=== PATIENT | female | born 1975 | race Caucasian/White ===

== ENCOUNTER 2017-05-14 04:46 | Inpatient (IN) | payer OTHER ==
[~2017-05-14] VITALS: Ht 170.2 cm; Wt 99.0 kg
[~2017-05-14 04:46] MED LIST: DILAUDID2 M1 PO; DOXYCYCLINE HY100 M2 PO; FLEXERIL10 MG PO; NAPROXEN250 M1 PO; PREDNISONE 10MG10 M1 PO; PRILOSEC 20MG C20 MG PO; VICODIN5-300 PO
--- NOTE | 2017-05-14 04:56 | NUR ---
42yo FEMALE TO TRIAGE FROM HOME W/CO L FLANK PAIN THAT RADIATES TO FRONT. STATES IT AWOKE HER THIS AM.
--- NOTE | 2017-05-14 05:16 | NUR ---
EVAL BY DR GARCIA IN 3
--- NOTE | 2017-05-14 05:51 | ED GI/GU/ABDOMINAL COMPLAINT ---
History of Present Illness General Chief Complaint: Abdominal Pain/Flank Pain Stated Complaint: LOWER BACK PAIN/ ABD PAIN X 2 HOURS Source: patient, family, old records, Epic Exam Limitations: no limitations Vital Signs & Intake/Output Vital Signs & Intake/Output Vital Signs Date Time Temp Pulse Resp B/P B/P Pulse O2 O2 Flow FiO2 Mean Ox Delivery Rate 05/14 913 98.7 103 18 131/83 92 Room Air 05/14 0712 98.1 82 18 136/63 96 Room Air 05/14 0517 97 Room Air 05/14 0457 97.4 74 16 114/57 97 Room Air Room Air Allergies Coded Allergies: iodine (Mild, RASH 08/11/16) Reconcile Medications CYCLOBENZAPRINE HCL (Flexeril) 10 MG TAB 1 TAB PO Q8H PRN muscle relaxant Avoid operating motor vehicle or heavy machinery CYCLOBENZAPRINE HCL (Flexeril) 10 MG TAB 1 TAB PO Q8H PRN spasm/pain Avoid operating motor vehicle or heavy machinery Doxycycline Hyclate 100 MG CAPSULE 1 CAP PO BID INFECTION HYDROCODONE/ACETAMINOPHEN (Hydrocodon-Acetaminophen 5-325) 1 TAB TAB 1 TAB PO Q6H PRN pain Hydromorphone HCl (Dilaudid) 2 MG TABLET 2 MG PO Q4P PRN PAIN SCALE 7-10 ( SEVERE) Naproxen 250 MG TABLET 250 MG PO Q6-PRN PRN PAIN SCALE 4-6 (MODERATE) Omeprazole (Prilosec) 20 MG CAPSULE.DR 1 TAB PO PRN GERD (Reported) Prednisone 10 MG TAB 0 PO DAILY sciatica DAY 1: 6 TABS PO QD DAY 2: 5 TABS PO QD DAY 3: 4 TABS PO QD DAY 4: 3 TABS PO QD DAY 5: 2 TABS PO QD DAY 6: 1 TAB PO QD Prednisone 10 MG TAB 0 PO DAILY sciatica DAY 1: 6 TABS PO QD DAY 2: 5 TABS PO QD DAY 3: 4 TABS PO QD DAY 4: 3 TABS PO QD DAY 5: 2 TABS PO QD DAY 6: 1 TAB PO QD Triage Note: 42yo FEMALE TO TRIAGE FROM HOME W/CO L FLANK PAIN THAT RADIATES TO FRONT. STATES IT AWOKE HER THIS AM. Triage Nurses Notes Reviewed? yes LMP (ages 10-50): hysterectomy ? n Is pt currently ? No Onset: Just prior to arrival Duration: hour(s):, constant, continues in ED, getting worse Timing: recent history Quality/Severity: sharpness, severe Location: left flank Radiation: periumbilical Activities at Onset: none Prior Abdominal Problems: similar symptoms Past Sexual History: Unobtainable at this time Modifying Factors: Worsens With: movement, palpation. Associated Symptoms: abdominal pain, loss of appetite, lower back pain, nausea/ vomiting HPI: 3 hours prior to admission patient complains of left flank pain severe sharp radiating to periumbilical area associated with nausea worse with movement palpation. She denies fever chills vomiting diarrhea chest pain cough shortness of breath headache dysuria rash bleeding. (LIBRADO GARCIA MD) Past History Travel History Traveled to [place] past 21 day No Medical History Any Pertinent Medical History? see below for history Neurological: NONE EENT: NONE Cardiovascular: NONE Respiratory: NONE Gastrointestinal: GERD Hepatic: NONE Renal: NONE Musculoskeletal: NONE Psychiatric: NONE Endocrine: NONE Cancer(s): uterine sarcoma Surgical History Surgical History: hysterectomy (TAHBSO), GASTRIC BYPASS, L ureterolysis Psychosocial History What is your primary language Kazakh Tobacco Use: Quit >30 days ago Family History Hx Contributory? No (LIBRADO GARCIA MD) Review of Systems Review of Systems Constitutional: Reports: no symptoms. EENTM: Reports: no symptoms. Respiratory: Reports: no symptoms. Cardiovascular: Reports: no symptoms. GI: Reports: see HPI, abdominal pain, nausea. Genitourinary: Reports: no symptoms. Musculoskeletal: Reports: no symptoms. Skin: Reports: no symptoms. Neurological/Psychological: Reports: no symptoms. Hematologic/Endocrine: Reports: no symptoms. Immunologic/Allergic: Reports: no symptoms. All Other Systems: Reviewed and Negative (LIBRADO GARCIA MD) Physical Exam Physical Exam General Appearance: well developed/nourished, alert, awake, anxious, severe distress, obese Head: atraumatic, normal appearance Eyes: Bilateral: normal appearance, PERRL, EOMI, normal inspection. Ears, Nose, Throat, Mouth: hearing grossly normal, moist mucous membrane Neck: normal inspection, supple, full range of motion, normal alignment Respiratory: normal breath sounds, chest non-tender, no respiratory distress, quiet respiration, lungs clear Cardiovascular: regular rate/rhythm, normal peripheral pulses, norml femoral pulses equa Peripheral Pulses: 4+ carotid (R), 4+ carotid (L) Gastrointestinal: normal bowel sounds, soft, tenderness Back: normal inspection, normal range of motion, CVA tenderness (L) Extremities: normal range of motion, no ligament instability Neurologic/Psych: no motor/sensory deficits, awake, alert, oriented x 3, normal gait, normal mood/affect, frit mixer II-XII nml as tested Skin: intact, normal color, warm/dry Core Measures ACS in differential dx? No Severe Sepsis Present: No Septic Shock Present: No (RADHA CAM,LIBRADO) Progress Differential Diagnosis: kidney stone, pancreatitis, PUD/GERD, UTI/pyelo Plan of Care: Orders Procedure Date/time Status URINALYSIS 05/14 519 Active LIPASE 05/14 519 Complete COMPREHENSIVE METABOLIC PANEL 05/14 519 Complete CBC WITHOUT DIFFERENTIAL 05/14 519 Complete Laboratory Tests 05/14/17 0925: Urine Color Pending, Urine Clarity Pending, Urine pH Pending, Ur Specific [place] Pending, Urine Protein Pending, Urine Ketones Pending, Urine Nitrite Pending, Urine Bilirubin Pending, Urine Urobilinogen Pending, Ur Leukocyte Esterase Pending, Ur Microscopic SEDIMENT EXAMINED, Urine RBC Pending, Urine Hemoglobin Pending, Urine Glucose Pending 05/14/17 0610: Anion Gap 12, Estimated GFR > 60, BUN/Creatinine Ratio 12.5, Glucose 121 H, Calcium 10.0, Total Bilirubin 0.5, AST 21, ALT 31, Alkaline Phosphatase 97, Total Protein 6.7, Albumin 4.3, Globulin 2.4, Albumin/Globulin Ratio 1.8, Lipase 85, CBC w Diff MAN DIFF ORDERED, RBC 5.33, MCV 72.5 L, MCH 22.2 L, RDW 20.1 H , MPV 8.5, Gran % 90.4 H, Lymphocytes % 6.3 L, Monocytes % 2.8, Eosinophils % 0.1, Basophils % 0.4, Absolute Granulocytes 12.4 H, Segmented Neutrophils 85 H , Band Neutrophils 6 H, Absolute Lymphocytes 0.9 L, Lymphocytes 4 L, Monocytes 5, Absolute Monocytes 0.4, Absolute Eosinophils 0, Absolute Basophils 0, Platelet Estimate ADEQUATE, Polychromasia 1+, Hypochromic-Microcytic 1+, Poikilocytosis 1+, Anisocytosis 1+, Microcytic Cells 1+, Ovalocytes 1+, Stomatocytes FEW, Elliptocytes FEW, PUBS MCHC 30.6 L, Fld Total RBCs Counted 100 Initial ED EKG: none Hand-Off Endorsed To: NEHA COON DO Endorsed Time: 0700 Pending: CT (LIBRADO GARCIA MD) Departure Departure Disposition: STILL A PATIENT Condition: Stable Clinical Impression Primary Impression: Flank pain, acute Referrals: GUEVARA OSIEL CAM (PCP/Family) Departure Forms: Customer Survey General Discharge Information (LIBRADO GARCIA MD) Departure Comments 05/14/17 8:30 AM 42-year-old female status post gastric bypass surgery 10 years ago. History of uterine sarcoma. Status post total abdominal hysterectomy and bilateral salpingo-oophorectomy. The patient presented with a sudden onset of severe abdominal pain last night. CT scan results are shown below. IMPRESSION: - There is pneumoperitoneum and intra-abdominal free fluid, concentrated within the upper half of the abdomen. The source of pneumoperitoneum is suspected to be a perforation just proximal to the gastroenteric anastomosis on axial image 202 of series 3 and image 49 of series 602. - Small volume complex fluid within the pelvis measures above simple fluid attenuation though this may be artifactually related to streak artifact coursing through this area. A small amount of hemoperitoneum with be difficult to exclude and can be correlated with the patient's hematocrit. - There is a 2.8 cm area of relative hypoenhancement within the anterior half of the pancreatic head without associated pancreatic ductal dilatation. This could reflect focal fatty atrophy of the pancreas though a pancreatic protocol MRI would be helpful in excluding an underlying lesion. Critical findings discussed with Dr. Coon at 7:45 AM on 05/14/2017. DICTATED BY: NEHA ALEXANDRA MD DATE/TIME DICTATED:05/14/17737 PROJECT CREW WORKER:MICHAEL DATE/TIME TRANSCRIBED:05/14/17737 CONFIDENTIAL, DO NOT COPY WITHOUT APPROPRIATE AUTHORIZATION. <Electronically signed in Other Vendor System> SIGNED BY: NEHA ALEXANDRA MD 05/14/17 0754 I was informed by the radiology of the following results above. Chris Page MD the on-call surgeon and the surgical PA were paged. I spoke with surgical PA. OR/GI Note Spoke With: KARLA HOWELL MD ED Treatment Decision: MARIA VICTORIA OBREGON requires urgent operative management or an emergent procedure that cannot be performed in the Emergency Room setting. (NEHA COON DO.)
--- NOTE | 2017-05-14 06:00 | NUR ---
IV INSERTED AFTER GREAT DIFFICULTY LABS TYLER ANGEL BUTTERFLY STICK--SST,LAV SENT TO LAB
[2017-05-14 06:21] LABS: ABSOLUTE BASOPHIL COUNT 0 /CUMM (0.0-0.2); ABSOLUTE EOSINOPHIL COUNT 0 /CUMM (0.0-0.7); ABSOLUTE GRANULOCYTE CT 12.4 /CUMM (1.4-6.5); ABSOLUTE LYMPH COUNT 0.9 /CUMM (1.2-3.4); ABSOLUTE MONOCYTE COUNT 0.4 /CUMM (0.10-0.60); BASOPHIL % 0.4 % (0.0-2.0); EOSINOPHIL % 0.1 % (0-5); GRANULOCYTE % 90.4 % (42.2-75.2); HEMATOCRIT 38.7 % (37-47); MEAN CORPUSCULAR HGB 22.2 PG (27.0-31.0); MEAN CORPUSCULAR HGB CONC 30.6 G/DL (33.0-37.0); MEAN CORPUSCULAR VOLUME 72.5 FL (81.0-99.0); MEAN PLATELET VOLUME 8.5 FL (7.4-10.4); PLATELET COUNT 341 /CUMM (130-400); RBC DISTRIBUTION WIDTH 20.1 % (11.5-14.5); WHITE BLOOD CELL COUNT 13.7 /CUMM (4.8-10.8)
--- NOTE | 2017-05-14 06:30 | NUR ---
CO PAIN CONTINUING. RESTLESS ON STRETCHER DR GARCIA IN TO RE EVAL
[2017-05-14 06:36] LABS: RED BLOOD CELL CT 5.33 /CUMM (4.20-5.40)
--- NOTE | 2017-05-14 06:38 | NUR ---
DILAUDID 1MG IV GIVEN.
--- NOTE | 2017-05-14 07:20 | NUR ---
ASSUMED CARE OF PT WHO IS A&OX3, PT GIVEN LEMON GLYCERIN SWABS FOR DRY MOUTH AND [place] JELLY FOR DRY LIPS. PT MEDICATED WITH 25 MG BENEDRYL IV AND OFF TO CT SCAN
--- NOTE | 2017-05-14 07:33 | NUR ---
PT RETURNS FROM CT SCAN. PT HAS NO COMPLAINTS AT THIS TIME
--- NOTE | 2017-05-14 07:54 | CT SCAN REPORT ---
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 COMPARISON: Abdominal CT 08/11/2016. TECHNIQUE: Multidetector volumetric imaging was performed of the abdomen and pelvis before and after the IV administration of 95 mL of Optiray 320 intravenous contrast. Sagittal and coronal reformatted images were obtained on the technologist's workstation. FINDINGS: There is pneumoperitoneum concentrated within the upper abdomen. There is a gastric anastomosis and free air and fluid are seen along the greater curvature of the stomach near the anastomosis where there is a suspected gastric perforation on image 49 of series 602 just proximal to the gastroenteric anastomosis. The large and small bowel are normal in caliber without evidence of mechanical obstruction. There is a moderate amount of intracolonic stool. No definite abnormal large or small bowel wall thickening. The cecum is distended. The appendix is normal. Dependent atelectasis at the lung bases. The liver, spleen, adrenal glands, and gallbladder, are normal. There is a 2.8 cm area of relative hypoenhancement within the anterior half of the pancreatic head without associated pancreatic ductal dilatation. This could reflect focal fatty atrophy of the pancreas though a pancreatic protocol MRI would be helpful in excluding an underlying lesion. The kidneys exhibit symmetric nephrograms without evidence of hydronephrosis or nephrolithiasis. No focal renal lesions. There is aortoiliac atherosclerotic calcification. Hysterectomy changes. No pelvic adenopathy. Complex fluid within the pelvis measures above simple fluid attenuation though this may be artifactually related to streak artifact coursing through this area. A small amount of hemoperitoneum with be difficult to exclude and can be correlated with the patient's hematocrit. There are no acute osseous abnormalities. No significant soft tissue abnormality. IMPRESSION: - There is pneumoperitoneum and intra-abdominal free fluid, concentrated within the upper half of the abdomen. The source of pneumoperitoneum is suspected to be a perforation just proximal to the gastroenteric anastomosis on axial image 202 of series 3 and image 49 of series 602. - Small volume complex fluid within the pelvis measures above simple fluid attenuation though this may be artifactually related to streak artifact coursing through this area. A small amount of hemoperitoneum with be difficult to exclude and can be correlated with the patient's hematocrit. - There is a 2.8 cm area of relative hypoenhancement within the anterior half of the pancreatic head without associated pancreatic ductal dilatation. This could reflect focal fatty atrophy of the pancreas though a pancreatic protocol MRI would be helpful in excluding an underlying lesion. Critical findings discussed with Dr. Hernandez at 7:45 AM on 05/14/2017.
--- NOTE | 2017-05-14 08:13 | NUR ---
PT REQUESTING PAIN MEDS. DR COON AWARE
--- NOTE | 2017-05-14 08:59 | NUR ---
SURGERY AT BEDSIDE FOR EVALUATION
--- NOTE | 2017-05-14 09:21 | NUR ---
PT AMBULATORY TO BR FOR URINE SPECIMEN
--- NOTE | 2017-05-14 09:29 | NUR ---
URINE TRIO SENT TO LAB
--- NOTE | 2017-05-14 10:23 | NUR ---
ALL CLOTHING REMOVED, JEWLERY, PT GIVEN PRE OP SCRUB TO COMPLETE
--- NOTE | 2017-05-14 10:45 | History & Physical Pre-Op ---
General Information and HPI MD Statement: I have seen and personally examined MARIA VICTORIA OBREGON and documented this H&P. The patient is a 42 year old F who presented with a patient stated chief complaint of abdominal pain. Source of Information: patient History of Present Illness: This is a 42 year old female with a history of uterine sarcoma status post TAHBSO and a past surgical history of a laparoscopic gastric bypass 10 years ago at [facility] who presents to the emergency room complaining of a sudden onset of left sided back pain that radiates to her left upper quadrant that awoke her from her sleep at 1:00 am. She initally described the pain as a gas bubble and took OTC naproxen with no relief. Currently she describes the pain as sharp and stabbing and is aggrevated with any movement and deep breathing. She states the Morphine she recieved in the ER helped improve her pain. She denies ever experiencing this pain before. She denies any nausea, vomiting, fever, chills, night sweats, chest pain, shortness of breath, urinary changes or bowel changes. Allergies/Medications Allergies: Coded Allergies: iodine (Mild, RASH 08/11/16) Home Med list Anastrozole (Arimidex) 1 MG TABLET 1 TAB PO DAILY hormone replacement ( Reported) Omeprazole (Prilosec) 20 MG CAPSULE.DR 1 TAB PO PRN GERD (Reported) Past History Medical History Neurological: NONE EENT: NONE Cardiovascular: NONE Respiratory: NONE Gastrointestinal: GERD Hepatic: NONE Renal: NONE Musculoskeletal: NONE Psychiatric: NONE Endocrine: NONE Cancer(s): Uterine sarcoma Surgical History Pertinent Surgical History: Laparoscopic gastric bypass, Right breast excision secondary to breast abscess L ureterolysis, TAHBSO Past Family/Social History Family History Relations & Conditions if any Family history was reviewed; no changes noted. Psychosocial History Smoking Status: Former Smoker ETOH Use: occasional use (2 beers/glasses wine/weekend) Illicit Drug Use: denies illicit drug use Functional Ability ADLs Independent: dressing, eating, toileting, bathing. Ambulation: independent Review of Systems Review of Systems Constitutional: Reports: no symptoms. EENTM: Reports: no symptoms. Cardiovascular: Reports: no symptoms. Respiratory: Reports: see HPI. GI: Reports: see HPI, abdominal pain. Genitourinary: Reports: no symptoms. Musculoskeletal: Reports: no symptoms. Skin: Reports: cysts (Abdomin last week). Neurological/Psychological: Reports: no symptoms. Hematologic/Endocrine: Reports: no symptoms. Immunologic/Allergic: Reports: no symptoms. All Other Systems: Reviewed and Negative Exam & Diagnostic Data Last 24 Hrs of Vital Signs/I&O Vital Signs Date Time Temp Pulse Resp B/P B/P Pulse O2 O2 Flow FiO2 Mean Ox Delivery Rate 05/14 913 98.7 103 18 131/83 92 Room Air 05/14 0712 98.1 82 18 136/63 96 Room Air 05/14 0517 97 Room Air 05/14 0457 97.4 74 16 114/57 97 Room Air Room Air Intake & Output 05/14 1600 05/14 0800 05/14 0000 Intake Total 1000 Output Total Balance 1000 Intake, IV 1000 Patient 220 lb Weight Physical Exam General Appearance Alert, Oriented X3, Cooperative, No Acute Distress, Resting uncomfortable secondary to pain HEENT Atraumatic, EOMI, Mucous Membr. moist/pink Neck Supple, No JVD Cardiovascular Normal S1, Normal S2 Lungs Clear to Auscultation (Fair inspiratory effort), No wheezing, rales or rhonci Abdomen Soft, Hypoactive bowel sounds, well-healed supraumbicial vertical incision, tender to palpation in LLQ and epigastric region with voluntary guarding and rebound tenderness. Neurological No gross focal defecits Extremities No Edema, Normal Pulses, No Tenderness/Swelling Breasts Well healed formed incision on inferior aspect of her breast Pelvic (FEMALE) Deferred Rectal Deferred Last 24 Hrs of Labs/Amado: Laboratory Tests 05/14/17 0925: Urine Color YEL, Urine Clarity CLEAR, Urine pH 7.0, Ur Specific [place] <= 1.005 , Urine Protein TRACE H, Urine Ketones NEG, Urine Nitrite NEG, Urine Bilirubin NEG, Urine Urobilinogen 0.2, Ur Leukocyte Esterase NEG, Ur Microscopic SEDIMENT EXAMINED, Urine RBC RARE, Urine WBC 1-3 H, Ur Epithelial Cells FEW, Urine Bacteria RARE H, Urine Hemoglobin NEG, Urine Glucose NEG 05/14/17 0610: Anion Gap 12, Estimated GFR > 60, BUN/Creatinine Ratio 12.5, Glucose 121 H, Calcium 10.0, Total Bilirubin 0.5, AST 21, ALT 31, Alkaline Phosphatase 97, Total Protein 6.7, Albumin 4.3, Globulin 2.4, Albumin/Globulin Ratio 1.8, Lipase 85, CBC w Diff MAN DIFF ORDERED, RBC 5.33, MCV 72.5 L, MCH 22.2 L, RDW 20.1 H , MPV 8.5, Gran % 90.4 H, Lymphocytes % 6.3 L, Monocytes % 2.8, Eosinophils % 0.1, Basophils % 0.4, Absolute Granulocytes 12.4 H, Segmented Neutrophils 85 H , Band Neutrophils 6 H, Absolute Lymphocytes 0.9 L, Lymphocytes 4 L, Monocytes 5, Absolute Monocytes 0.4, Absolute Eosinophils 0, Absolute Basophils 0, Platelet Estimate ADEQUATE, Polychromasia 1+, Hypochromic-Microcytic 1+, Poikilocytosis 1+, Anisocytosis 1+, Microcytic Cells 1+, Ovalocytes 1+, Stomatocytes FEW, Elliptocytes FEW, PUBS MCHC 30.6 L, Fld Total RBCs Counted 100 Diagnostic Data Other Results On 05/14/17, CT of A/P with IV contrast reveals pneumoperitoneum and intra- abdominal free fluid, concentrated within the upper half of the abdomen. The source of pneumoperitoneum is suspected to be a perforation just proximal to the gastroenteric anastomosis. There is a small volume complex fluid within the pelvis measures above simple fluid attenuation though this may be artifactually related to streak artifact coursing through this area. A small amount of hemoperitoneum with be difficult to exclude and can be correlated with the patient's hematocrit. There is a 2.8 cm area of relative hypoenhancement within the anterior half of the pancreatic head without associated pancreatic ductal dilatation. This could reflect focal fatty atrophy of the pancreas though a pancreatic protocol MRI would be helpful in excluding an underlying lesion. Assessment/Plan Assessment/Plan: This is a 42 year old female with a history of uterine sarcoma status post TAHSBO and obesity status post laparoscopic gastric bypass at [facility] 10 years ago who presents with perforated viscus proximal to the gastroenteric anastomosis. Plan: Patient will be admitted to the bariatric surgery under the care of Dr. Carrera. She will remain NPO on IV fluids and IV analgesics and IV antiemetics for discomfort. She will proceed to the OR emergently with Dr. Carrera for exploration. As Ranked By This Provider Problem List: 1. Pneumoperitoneum relative hypoenhancement within the anterior half of the pancreatic head without associated pancreatic ductal dilatation. This could reflect focal fatty atrophy of the pancreas though a pancreatic protocol MRI would be helpful in excluding an underlying lesion. Assessment/Plan Assessment/Plan: This is a 42 year old female with a history of uterine sarcoma status post TAHSBO and obesity status post laparoscopic gastric bypass at [facility] 10 years ago who presents with perforated viscus proximal to the gastroenteric anastomosis. Plan: Patient will be admitted to the bariatric surgery under the care of Dr. Carrera. She will remain NPO on IV fluids and IV analgesics and IV antiemetics for discomfort. She will proceed to the OR emergently with Dr. Carrera for exploration. As Ranked By This Provider Problem List: 1. Pneumoperitoneum
--- NOTE | 2017-05-14 11:58 | Admission Core Measures ---
Admission Lab Results I reviewed the following labs: Laboratory Tests 05/14 05/14 0921 0649 Chemistry Sodium (137 - 145 mmol/L) 142 Potassium (3.5 - 5.1 mmol/L) 4.5 Chloride (98 - 107 mmol/L) 104 Carbon Dioxide (22 - 30 mmol/L) 26 Anion Gap (5 - 16) 12 BUN (7 - 17 mg/dL) 10 Creatinine (0.5 - 1.0 mg/dL) 0.8 Estimated GFR (>60 ml/min) > 60 BUN/Creatinine Ratio (7 - 25 %) 12.5 Glucose (65 - 99 mg/dL) 121 H Calcium (8.4 - 10.2 mg/dL) 10.0 Total Bilirubin (0.2 - 1.3 mg/dL) 0.5 AST (14 - 36 U/L) 21 ALT (9 - 52 U/L) 31 Alkaline Phosphatase (<127 U/L) 97 Total Protein (6.3 - 8.2 g/dL) 6.7 Albumin (3.5 - 5.0 g/dL) 4.3 Globulin (1.9 - 4.2 gm/dL) 2.4 Albumin/Globulin Ratio (1.1 - 2.2 %) 1.8 Lipase (23 - 300 U/L) 85 Hematology CBC w Diff MAN DIFF ORDERED WBC (4.8 - 10.8 /CUMM) 13.7 H RBC (4.20 - 5.40 /CUMM) 5.33 Hgb (12.0 - 16.0 G/DL) 11.8 L Hct (37 - 47 %) 38.7 MCV (81.0 - 99.0 FL) 72.5 L MCH (27.0 - 31.0 PG) 22.2 L RDW (11.5 - 14.5 %) 20.1 H Plt Count (130 - 400 /CUMM) 341 MPV (7.4 - 10.4 FL) 8.5 Gran % (42.2 - 75.2 %) 90.4 H Lymphocytes % (20.5 - 51.1 %) 6.3 L Monocytes % (1.7 - 9.3 %) 2.8 Eosinophils % (0 - 5 %) 0.1 Basophils % (0.0 - 2.0 %) 0.4 Absolute Granulocytes (1.4 - 6.5 /CUMM) 12.4 H Segmented Neutrophils (42.2 - 75.2 %) 85 H Band Neutrophils (0.0 - 5.0 %) 6 H Absolute Lymphocytes (1.2 - 3.4 /CUMM) 0.9 L Lymphocytes (20.5 - 51.1 %) 4 L Monocytes (1.7 - 9.3 %) 5 Absolute Monocytes (0.10 - 0.60 /CUMM) 0.4 Absolute Eosinophils (0.0 - 0.7 /CUMM) 0 Absolute Basophils (0.0 - 0.2 /CUMM) 0 Platelet Estimate (ADEQUATE) ADEQUATE Polychromasia 1+ Hypochromic-Microcytic 1+ Poikilocytosis 1+ Anisocytosis 1+ Microcytic Cells 1+ Ovalocytes 1+ Stomatocytes FEW Elliptocytes FEW PUBS MCHC (33.0 - 37.0 G/DL) 30.6 L Other Body Source Fld Total RBCs Counted (%) 100 Urines Urine Color (YEL,AMB,STR) YEL Urine Clarity (CLEAR) CLEAR Urine pH (5.0 - 8.0) 7.0 Ur Specific [place] (1.001 - 1.035) <= 1.005 Urine Protein (NEG,<30 MG/DL) TRACE H Urine Ketones (NEG) NEG Urine Nitrite (NEG) NEG Urine Bilirubin (NEG) NEG Urine Urobilinogen (0.1 - 1.0 EU/dl) 0.2 Ur Leukocyte Esterase (NEG) NEG Ur Microscopic SEDIMENT EXAMINED Urine RBC (0 - 5 /HPF) RARE Urine WBC (0 - 2 /HPF) 1-3 H Ur Epithelial Cells (NONE,FEW) FEW Urine Bacteria (NEG/NONE) RARE H Urine Hemoglobin (NEG) NEG Urine Glucose (N MG/DL) NEG Admission Meds I reviewed the following Meds: Current Medications Sig/Shelby Start time Last Medication Dose Stop Time Status Admin Anastrozole 1 MG DAILY 05/15 1000 UNVr (Arimidex) Omeprazole 20 MG DAILY AC 05/15 0700 UNVr (Prilosec) Acute Coronary Syndrome Inclusion Criteria ACS Diagnosis No Inpatient Core Measures LDL Reminder: If No, please order W/I first 24hr of stay Congestive Heart Failure Inclusion Criteria CHF Diagnosis No Cerebrovascular accident Inclusion Criteria CVA/TIA Diagnosis No Inpatient Core Measures Bedside Swallow Eval Reminder: If BSE failed, place ST order Antithrombotic Reminder: Order Antithrombotic Medication by end of day 2 Antithrombotic Reminder: Document Reason Antithrombotic Not ordered by end of day 2 AFIB/Flutter Reminder: If Present, add to problem list AFIB/Flutter Reminder: Order Anticoag Medication for pts with AFIB/Flutter Atherosclerosis Reminder: If Present, add to problem list LDL Reminder: If No, please order W/I first 24hr of stay PT Order Reminder: If No, please order Venous thromboembolism Inpatient Core Measures VTE Risk Factors: Age > 40, Surgery [facility] prophylaxis d/t No contraindications No VTE Pharm Prophylaxis d/t No contraindications Inclusion Criteria - Per Current guidelines, there needs to be overlap - treatment for the first 5 days of Warfarin therapy. - Parenteral Anticoagulation (IV or SC) needs to be - given along with Warfarin therapy. VTE Diagnosis No VTE Type NONE VTE Confirmed by (Test) NONE Problem List As ranked by this Provider includes Assessment & Plan 1. Pneumoperitoneum 2. Perforated abdominal viscus HOME MEDS Home Med List CYCLOBENZAPRINE HCL (Flexeril) 10 MG TAB 1 TAB PO Q8H PRN muscle relaxant CYCLOBENZAPRINE HCL (Flexeril) 10 MG TAB 1 TAB PO Q8H PRN spasm/pain Doxycycline Hyclate 100 MG CAPSULE 1 CAP PO BID INFECTION HYDROCODONE/ACETAMINOPHEN (Hydrocodon-Acetaminophen 5-325) 1 TAB TAB 1 TAB PO Q6H PRN pain Hydromorphone HCl (Dilaudid) 2 MG TABLET 2 MG PO Q4P PRN PAIN SCALE 7-10 ( SEVERE) Naproxen 250 MG TABLET 250 MG PO Q6-PRN PRN PAIN SCALE 4-6 (MODERATE) Omeprazole (Prilosec) 20 MG CAPSULE.DR 1 TAB PO PRN GERD (Reported) Prednisone 10 MG TAB 0 PO DAILY sciatica Prednisone 10 MG TAB 0 PO DAILY sciatica
[2017-05-14 16:57] VITALS: BP 110/60
--- NOTE | 2017-05-14 17:14 | PN- General Surgery ---
Subjective Subjective: Postop check: Patient denies nausea vomiting. Denies fever or flulike illness. She has 8 of 10 pain in the epigastric region. Her ELIZABETH drain site in the right upper quadrant dressing is saturated with serosanguineous bloody drainage. Objective Vital Signs and I&Os Vital Signs Date Time Temp Pulse Resp B/P B/P Pulse O2 O2 Flow FiO2 Mean Ox Delivery Rate 05/14 1657 98.3 98 18 110/60 94 Nasal 3.0L Cannula 05/14 09 98.7 103 18 131/83 92 Room Air 05/14 0712 98.1 82 18 136/63 96 Room Air 05/14 0517 97 Room Air 05/14 0457 97.4 74 16 114/57 97 Room Air Room Air Intake & Output 05/14 1600 05/14 0800 05/14 0000 05/13 1600 05/13 0800 05/13 0000 Intake Total 1000 Output Total Balance 1000 Intake, IV 1000 Patient 220 lb Weight Physical Exam: Well-developed well-nourished no apparent distress. HEENT: Atraumatic, extraocular motion intact Neck: Supple, no lymphadenopathy Respiratory: No respiratory distress Abdomen: Tenderness in the epigastrium and right upper quadrant region. Right upper quadrant Adithya-Dior Drain with moderate amount of serous sanguinous, more sanguinous, discharge. There is same colored fluid noted saturating the right upper quadrant drain dressing. Hypoactive bowel sounds Extremities: No edema, no calf pain Neuro: Alert and oriented x3 Psych: Mood affect normal, normal memory normal judgment. Skin: Warm and dry, no rash on exposed skin Assessment/Plan Assessment/Plan Postoperative day 0 status post perforated viscus with laparoscopic gram patch repair Nothing by mouth until likely Wednesday afternoon, discussed with patient and Dr. Carrera IV fluids IV pain medication IV Protonix Avoid NSAIDs IV Unasyn Following labs ELIZABETH drain to self suction Dressing around ELIZABETH drain reinforced Out of bed ad chace. Heparin sq, ALPS Core Measures/Miscellaneous Venous Thromboembolism VTE Risk Factors: Age > 40, Surgery VTE Contraindications: No Contraindications VTE Diagnosis: No VTE Type: NONE VTE Confirmed by (Test): NONE Beta Cheryl Is Beta Cheryl a Home Med? No Antibiotics Is Patient on Antibiotics? Yes If Yes: infection
--- NOTE | 2017-05-14 17:15 | NUR ---
PT ARRIVED TO FLOOR AT 1645 FROM PACU. PT AMBULATORY TO BED, STEADY GAIT. A/V/OX3. ON 3LNC. LUNGS CLEAR, RA AT BASELINE. 3 SMALL DRESSINGS TO ABD, CDI. UNDER R BREAST ELIZABETH DRAIN DRESSING WITH BLOODY DRAINAGE ,CHANGED BY SURGICAL PA. OTHERWISE DRESSINGS CDI. HYPOACTIVE BS. PT REMAINS NPO, UNDERSTANDS POC. VITAL SIGNS STABLE. MEDICATED WITH MORPHINE FOR 8/10 PAIN TO L ABD. D5N2 @100ML/HR INFUSING INTO #20 IN RH. #18 IN LW FLUSHING EASILY. PT ORIENTED TO ROOM CALL WONG & SURROUNDINGS. WILL MONITOR.
--- NOTE | 2017-05-14 17:38 | Operative Report ---
Operative/Inv Procedure Report Surgery Date: 05/14/17 Name of Procedure: laparoscopic exploration and repair of perforated posterior gastrojejunal anastomotic ulcer with omental grahm plication Pre-Operative Diagnosis: perforated viscus Post-Operative Diagnosis: perforation of ulcer jejunal side of anastomosis Estimated Blood Loss: less than 50ml Surgeon/[place]: DANTE CAM,KARLA HALL Anesthesia: general endotracheal tube IV Fluids: LR Implants: none Urine Output: na Drains: ELIZABETH x 2 Specimens: none Complications: none Condition: stable Operative Indication: pt presents greater than 10 yrs s/p Jorge L en Y gastric bypass by Dr Rosales at [facility] Pt has free air in abdomen on CT and sudden onset of severe abdominal and back pain consistent with a perforated viscus Operative/Procedure Note Note: Patient was taken emergently to the operating room after informed consent timeout was performed proper identification and the procedure reiterated the abdomen was prepped and draped in normal sterile fashion. Under general anesthesia we anesthetized the skin and subcutaneous tissue with half percent Marcaine 1 cm incision was made in the left upper quadrant we entered the abdominal cavity using a 0 Stortz laparoscope and a covidian 12 mm Visiport. Upon entry there is little bit of blood blush from what appeared to be the omentum. We insufflated with CO2. We placed 2 additional 5 mm trochars in each of the subcostal margins additional 10 mm trocar in the right midabdomen. Could see some blood as a trocar penetrated through the omentum and a small tear in the mesentery adjacent to the small bowel there's a little bit of oozing we packed this with gauze. There is no injury to any bowel. We then placed and Ender liver retractor. We could see a little bit of purulent material up in the left gutter and around the spleen and around the omentum. With an extensive lysis of adhesions approximately 45 minutes were we had to take omentum off of what appeared to be the gastrojejunostomy anastomosis anteriorly we irrigated. We then looked over the right gutter and the duodenum. The only inflammatory area was of the sleep of small bowel going into the gastric anastomosis of the gastrojejunostomy but we did not seem the anterior lobe. We had anesthesia place a Cornelio tube and injected air and then methylene blue we did not see any leakage of air or methylene blue. We therefore got into the retrogastric space through the greater curvature vasculature by dividing the vasculature between the gastroepiploic's and the stomach. The blue and purulent material was in the lesser sac we suction irrigated it were careful not to injure the pancreas. We then discovered a dime-sized hole on the small bowel side of the gastrojejunostomy anastomosis posteriorly. We prepared a nice nonedematous piece of omentum and stuffed it in the hole and then performed a Jerald plication by sutured in place circumferentially with 2-0 Vicryl suture. We then suction irrigated the abdomen with 3 L of saline we looked into the pelvis was no further bleeding remove the 3 lap sponges that we had placed we placed Surgicel were discussed small rent was made in the mesentery less than half a centimeter. We inserted 210 flat ELIZABETH drains one in the left gutter over the spleen and the other over the repair and brought them out through the 5 mm trocar sites. Removed all trochars closed skin incisions with 4 Monocryl subcuticular stitches Steri-Strips and dry sterile dressings were placed. The patient tolerated the procedure without complications and was taken to the recovery room in stable condition Findings: as above Discharge Disposition: PACU Additional Comments: pt has retrogastric retrocolic Ojrge L Susana bypass
--- NOTE | 2017-05-14 17:49 | NUR ---
CONFIRMED MORPHINE ORDER WITH SURGICAL PA. PER PA, ORDER OK.
[2017-05-14 19:42] VITALS: BP 126/70
[2017-05-14 21:30] VITALS: BP 124/74
--- NOTE | 2017-05-14 21:59 | NUR ---
PTS PAIN LEVEL HAS BEEN 8-10/10 IN ABD SINCE ARRIVAL TO FLOOR. THIS RN VERIFIED MORPHINE 2-4MG IV Q1HRS PRN WITH SURGICAL PA ANEL UPON PTS ARRIVAL TO FLOOR. PER SURGICAL PA, THE ORDER WAS APPROPRIATE. THIS RN ADMINISTERED 4MG IV MORPHINE AT 1702 TO PT AND AT 1946 TO PT. AT THIS TIME, PT REQUESTIONG ADDITIONAL PAIN MEDICATION FOR A PAIN OF 9/10. SURGICAL RAFAEL MANRIQUEZ MADE AWARE OF AMOUNT OF MORPHINE PT RECEIVED DURING THIS RNS SHIFT. ORDER TO BE CHANGED TO Q2HRS PRN. PT VITAL SIGNS STABLE. SAFETY PRECAUTIONS MAINTAINED.
[2017-05-15] VITALS (7 sets, daily range): BP systolic 100–130; BP diastolic 56–70
[2017-05-15 08:42] LABS: ABSOLUTE BASOPHIL COUNT 0 /CUMM (0.0-0.2); ABSOLUTE EOSINOPHIL COUNT 0 /CUMM (0.0-0.7); EOSINOPHIL % 0.2 % (0-5); PLATELET COUNT 298 /CUMM (130-400)
[2017-05-15 09:33] LABS: ABSOLUTE GRANULOCYTE CT 12.2 /CUMM (1.4-6.5); ABSOLUTE MONOCYTE COUNT 0.7 /CUMM (0.10-0.60); BASOPHIL % 0.3 % (0.0-2.0); GRANULOCYTE % 81.4 % (42.2-75.2); MEAN CORPUSCULAR HGB 22.2 PG (27.0-31.0); MEAN CORPUSCULAR HGB CONC 30.4 G/DL (33.0-37.0); MEAN CORPUSCULAR VOLUME 73.1 FL (81.0-99.0); RBC DISTRIBUTION WIDTH 20.6 % (11.5-14.5); RED BLOOD CELL CT 4.49 /CUMM (4.20-5.40)
[2017-05-15 09:51] LABS: HEMATOCRIT 32.8 % (37-47)
--- NOTE | 2017-05-15 10:49 | PN- General Surgery ---
Subjective Subjective: Patient was seen and examined by Dr. Carrera this morning. Overall, she feels much better. She does continue to admit to some back discomfort, which is not surprising, given the posterior location of the perforation. Objective Vital Signs and I&Os Vital Signs Date Time Temp Pulse Resp B/P B/P Pulse O2 O2 Flow FiO2 Mean Ox Delivery Rate 05/15 1033 98.4 105 16 122/68 93 Nasal 3.0L Cannula 05/15 0800 Room Air 3.0L 05/15 0600 98.8 97 18 108/60 92 Nasal Cannula 05/15 0200 98.7 87 18 124/68 92 Nasal Cannula 05/15 0000 Nasal 3.0L Cannula 05/15 0000 99.1 90 18 118/70 92 Nasal Cannula 05/14 2130 98.8 98 20 124/74 94 Nasal 3.0L Cannula 05/14 1942 98.0 98 20 126/70 94 Nasal 2.5L Cannula 05/14 1903 Nasal 3.0L Cannula 05/14 1657 98.3 98 18 110/60 94 Nasal 3.0L Cannula 05/14 1645 94 Nasal 3.0L Cannula Intake & Output 05/15 1600 05/15 0800 05/15 0000 05/14 1600 05/14 0800 05/14 0000 Intake Total 500 1000 Output Total 55 50 Balance -55 450 1000 Intake, IV 500 1000 Intake, Oral 0 Output, 55 50 Drainage Patient 220 lb 220 lb Weight Physical Exam: Patient was examined by Dr. Carrera. Her abdomen is soft and nondistended. There is mild area incisional tenderness as expected. The JPs contain a small amount of serosanguineous output. No evidence of bilious output. Results Last 48 Hours of Labs: Laboratory Tests 05/15 05/14 0728 0925 Chemistry Sodium (137 - 145 mmol/L) 141 Potassium (3.5 - 5.1 mmol/L) 4.1 Chloride (98 - 107 mmol/L) 106 Carbon Dioxide (22 - 30 mmol/L) 27 Anion Gap (5 - 16) 8 BUN (7 - 17 mg/dL) 9 Creatinine (0.5 - 1.0 mg/dL) 0.6 Estimated GFR (>60 ml/min) > 60 BUN/Creatinine Ratio (7 - 25 %) 15.0 Hematology CBC w Diff NO MAN DIFF REQ WBC (4.8 - 10.8 /CUMM) 15.0 H RBC (4.20 - 5.40 /CUMM) 4.49 Hgb (12.0 - 16.0 G/DL) 10.0 L Hct (37 - 47 %) 32.8 L MCV (81.0 - 99.0 FL) 73.1 L MCH (27.0 - 31.0 PG) 22.2 L RDW (11.5 - 14.5 %) 20.6 H Plt Count (130 - 400 /CUMM) 298 MPV (7.4 - 10.4 FL) 9.0 Gran % (42.2 - 75.2 %) 81.4 H Lymphocytes % (20.5 - 51.1 %) 13.2 L Monocytes % (1.7 - 9.3 %) 4.9 Eosinophils % (0 - 5 %) 0.2 Basophils % (0.0 - 2.0 %) 0.3 Absolute Granulocytes (1.4 - 6.5 /CUMM) 12.2 H Absolute Lymphocytes (1.2 - 3.4 /CUMM) 2.0 Absolute Monocytes (0.10 - 0.60 /CUMM) 0.7 H Absolute Eosinophils (0.0 - 0.7 /CUMM) 0 Absolute Basophils (0.0 - 0.2 /CUMM) 0 PUBS MCHC (33.0 - 37.0 G/DL) 30.4 L Urines Urine Color (YEL,AMB,STR) YEL Urine Clarity (CLEAR) CLEAR Urine pH (5.0 - 8.0) 7.0 Ur Specific [place] (1.001 - 1.035) <= 1.005 Urine Protein (NEG,<30 MG/DL) TRACE H Urine Ketones (NEG) NEG Urine Nitrite (NEG) NEG Urine Bilirubin (NEG) NEG Urine Urobilinogen (0.1 - 1.0 EU/dl) 0.2 Ur Leukocyte Esterase (NEG) NEG Ur Microscopic SEDIMENT EXAMINED Urine RBC (0 - 5 /HPF) RARE Urine WBC (0 - 2 /HPF) 1-3 H Ur Epithelial Cells (NONE,FEW) FEW Urine Bacteria (NEG/NONE) RARE H Urine Hemoglobin (NEG) NEG Urine Glucose (N MG/DL) NEG 05/14 0610 Chemistry Sodium (137 - 145 mmol/L) 142 Potassium (3.5 - 5.1 mmol/L) 4.5 Chloride (98 - 107 mmol/L) 104 Carbon Dioxide (22 - 30 mmol/L) 26 Anion Gap (5 - 16) 12 BUN (7 - 17 mg/dL) 10 Creatinine (0.5 - 1.0 mg/dL) 0.8 Estimated GFR (>60 ml/min) > 60 BUN/Creatinine Ratio (7 - 25 %) 12.5 Glucose (65 - 99 mg/dL) 121 H Calcium (8.4 - 10.2 mg/dL) 10.0 Total Bilirubin (0.2 - 1.3 mg/dL) 0.5 AST (14 - 36 U/L) 21 ALT (9 - 52 U/L) 31 Alkaline Phosphatase (<127 U/L) 97 Total Protein (6.3 - 8.2 g/dL) 6.7 Albumin (3.5 - 5.0 g/dL) 4.3 Globulin (1.9 - 4.2 gm/dL) 2.4 Albumin/Globulin Ratio (1.1 - 2.2 %) 1.8 Lipase (23 - 300 U/L) 85 Hematology CBC w Diff MAN DIFF ORDERED WBC (4.8 - 10.8 /CUMM) 13.7 H RBC (4.20 - 5.40 /CUMM) 5.33 Hgb (12.0 - 16.0 G/DL) 11.8 L Hct (37 - 47 %) 38.7 MCV (81.0 - 99.0 FL) 72.5 L MCH (27.0 - 31.0 PG) 22.2 L RDW (11.5 - 14.5 %) 20.1 H Plt Count (130 - 400 /CUMM) 341 MPV (7.4 - 10.4 FL) 8.5 Gran % (42.2 - 75.2 %) 90.4 H Lymphocytes % (20.5 - 51.1 %) 6.3 L Monocytes % (1.7 - 9.3 %) 2.8 Eosinophils % (0 - 5 %) 0.1 Basophils % (0.0 - 2.0 %) 0.4 Absolute Granulocytes (1.4 - 6.5 /CUMM) 12.4 H Segmented Neutrophils (42.2 - 75.2 %) 85 H Band Neutrophils (0.0 - 5.0 %) 6 H Absolute Lymphocytes (1.2 - 3.4 /CUMM) 0.9 L Lymphocytes (20.5 - 51.1 %) 4 L Monocytes (1.7 - 9.3 %) 5 Absolute Monocytes (0.10 - 0.60 /CUMM) 0.4 Absolute Eosinophils (0.0 - 0.7 /CUMM) 0 Absolute Basophils (0.0 - 0.2 /CUMM) 0 Platelet Estimate (ADEQUATE) ADEQUATE Polychromasia 1+ Hypochromic-Microcytic 1+ Poikilocytosis 1+ Anisocytosis 1+ Microcytic Cells 1+ Ovalocytes 1+ Stomatocytes FEW Elliptocytes FEW PUBS MCHC (33.0 - 37.0 G/DL) 30.6 L Other Body Source Fld Total RBCs Counted (%) 100 Assessment/Plan Assessment/Plan Patient is a 42-year-old female with a 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 2 ELIZAB[address] drains remain in place. Leukocytosis is slightly worse, which can be seen postoperatively, but patient has been afebrile. Plan: -Continue IV antibiotics with Unasyn. Monitor temps and WBC. -Patient should be kept nothing by mouth for at least another day or 2. She can have a maximum of 1 cup of ice chips per day. -We will consider upper GI in 1-2 days. -Continue IV fluids. -Monitor electrolytes. -Protonix for GI prophylaxis. -Subcutaneous heparin and Alps for DVT prophylaxis. Patient may ambulate as desired. Core Measures/Miscellaneous Venous Thromboembolism VTE Risk Factors: Age > 40, Surgery VTE Contraindications: No Contraindications VTE Diagnosis: No VTE Type: NONE VTE Confirmed by (Test): NONE Beta Cheryl Is Beta Cheryl a Home Med? No Antibiotics Is Patient on Antibiotics? Yes If Yes: infection
[2017-05-16 06:27] VITALS: BP 118/70
[2017-05-16 08:27] LABS: ABSOLUTE BASOPHIL COUNT 0 /CUMM (0.0-0.2); ABSOLUTE EOSINOPHIL COUNT 0.1 /CUMM (0.0-0.7); ABSOLUTE GRANULOCYTE CT 9.3 /CUMM (1.4-6.5); ABSOLUTE LYMPH COUNT 1.7 /CUMM (1.2-3.4); ABSOLUTE MONOCYTE COUNT 0.6 /CUMM (0.10-0.60); BASOPHIL % 0.1 % (0.0-2.0); GRANULOCYTE % 78.9 % (42.2-75.2); HEMATOCRIT 28.3 % (37-47); MEAN CORPUSCULAR HGB 22.4 PG (27.0-31.0); MEAN CORPUSCULAR HGB CONC 30.6 G/DL (33.0-37.0); MEAN CORPUSCULAR VOLUME 73.1 FL (81.0-99.0); MEAN PLATELET VOLUME 8.8 FL (7.4-10.4); PLATELET COUNT 252 /CUMM (130-400); RBC DISTRIBUTION WIDTH 19.4 % (11.5-14.5); RED BLOOD CELL CT 3.87 /CUMM (4.20-5.40); WHITE BLOOD CELL COUNT 11.7 /CUMM (4.8-10.8)
--- NOTE | 2017-05-16 10:49 | PN- General Surgery ---
Subjective Subjective: No acute events overnight, except the patient had a low-grade temp of 100.2. Her ELIZABETH drain site dressing was changed last night due to saturation with serous fluid. Otherwise, She denies significant changes. Continues to complain of mid back pain, unchanged versus yesterday. Otherwise tolerating minimal ice chips. No nausea or vomiting. She admits to some belching. Not passing flatus or having bowel movements as of yet. Otherwise denies headache, dizziness, chest pain, shortness of breath. Objective Vital Signs and I&Os Vital Signs Date Time Temp Pulse Resp B/P B/P Pulse O2 O2 Flow FiO2 Mean Ox Delivery Rate 05/16 0627 98.7 97 18 118/70 94 Nasal Cannula 05/16 0000 Nasal 1.0L Cannula 05/15 2242 100.1 103 20 122/56 93 Nasal 1.0L Cannula 05/15 1745 100.2 116 20 130/60 94 Nasal 2.0L Cannula 05/15 1533 99.0 118 18 100/60 97 Intake & Output 05/16 1600 05/16 0800 05/16 0000 05/15 1600 05/15 0800 05/15 0000 Intake Total 850 500 Output Total 35 50 55 50 Balance -35 800 -55 450 Intake, IV 800 500 Intake, Oral 50 0 Output, 35 50 55 50 Drainage Patient 220 lb Weight Physical Exam: Gen.: Patient is awake and alert. No acute distress. Cardiac: Regular Pulmonary: Lungs are clear to station bilaterally except for some mild crackles at bilateral bases. Abdomen: Soft and nondistended. There is mild. Incisional tenderness, within expected limits. No significant drainage or erythema around the dressing sites. The right ELIZABETH remains in place with scant amounts of yellow, serous appearing fluid. It does not appear bilious. The bulbs are holding suction well. No bowel sounds as of yet. 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 2 ELIZABETH drains remain in place. Leukocytosis improving, however patient had a low-grade temp overnight. No evidence of leak, but will continue to monitor. Plan: -Continue IV antibiotics with Unasyn. Monitor temps and WBC. -Patient should be kept nothing by mouth for now. She can have a maximum of 1 cup of ice chips per day. -We will consider upper GI possibly tomorrow. -Continue IV fluids. -Monitor electrolytes. -Protonix for GI prophylaxis. -Subcutaneous heparin and Alps for DVT prophylaxis. Patient may ambulate as desired. -Encourage incentive spirometer, as I suspect a low-grade temp is most likely due to atelectasis, given the presence of crackles at the bases. Patient states that she is using the spirometer little bit better today. -Will d/w attending. Core Measures/Miscellaneous Venous Thromboembolism VTE Risk Factors: Age > 40, Surgery VTE Contraindications: No Contraindications VTE Diagnosis: No VTE Type: NONE VTE Confirmed by (Test): NONE Beta Cheryl Is Beta Cheryl a Home Med? No Antibiotics Is Patient on Antibiotics? Yes If Yes: infection
[2017-05-16 15:47] VITALS: BP 112/80
[2017-05-16 22:50] VITALS: BP 118/60
[2017-05-17 06:21] VITALS: BP 112/78
--- NOTE | 2017-05-17 08:35 | PN- General Surgery ---
See Addendum Subjective Subjective: No acute overnight events reported. Patient states that she had a brief episode of belching which she reports caused some abdominal discomfort but that has since resolved. She has yet to pass flatus. She states that overall her pain is less each day and her ability to deep breathe is improving daily as well. She denies chest pain, shortness of breath and difficulty breathing. She denies nausea and vomitting. SHe has been restricted to minimal amounts of ice chips, she is anticipating her upper gi this am and is hopeful that her diet will be advanced to clears later today. Objective Vital Signs and I&Os Vital Signs Date Time Temp Pulse Resp B/P B/P Pulse O2 O2 Flow FiO2 Mean Ox Delivery Rate 05/17 0621 98.8 101 20 112/78 91 Room Air 05/16 2250 98.3 90 20 118/60 90 Room Air 05/16 1547 98.6 99 20 112/80 94 Intake & Output 05/17 1600 05/17 0800 05/17 0000 05/16 1600 05/16 0800 05/16 0000 Intake Total 800 825 Output Total 920 50 35 Balance -120 775 -35 Intake, IV 800 800 Intake, Oral 0 25 Number 0 Bowel Movements Output, 20 50 35 Drainage Output, Urine 900 Physical Exam: General: Alert and oriented x3, no acute distress Cardiac: RRR, s1s2 Pulm: C T A bilaterally Abdomen: Tender with palpation left upper, no signficant distension appreciated presently. No bowel sounds ausculated, yesika x 2 with serous drainage 20 cc reported overnight total Extremities: Distal sensation intact, skin warm and well perfused. Bilateral calves soft and non-tender Assessment/Plan Assessment/Plan This is a 42 year old female, POD 3, s/p zoran patch for perf, surgical history sig for gastric bypass -F/U upper gi this am -F/U am labs -Continue npo for now -Continue current pain regimen -Continue current gi ppx -ALPS/Sub Q heparin for dvt ppx -Will consider diet plan following upper gi series later today -Will d/w Dr. Dias Core Measures/Miscellaneous Venous Thromboembolism VTE Risk Factors: Age > 40, Surgery VTE Contraindications: No Contraindications VTE Diagnosis: No VTE Type: NONE VTE Confirmed by (Test): NONE Beta Cheryl Is Beta Cheryl a Home Med? No Antibiotics Is Patient on Antibiotics? Yes If Yes: infection
[2017-05-17 09:32] LABS: ABSOLUTE BASOPHIL COUNT 0 /CUMM (0.0-0.2); ABSOLUTE EOSINOPHIL COUNT 0.1 /CUMM (0.0-0.7); ABSOLUTE GRANULOCYTE CT 7.5 /CUMM (1.4-6.5); ABSOLUTE LYMPH COUNT 1.1 /CUMM (1.2-3.4); ABSOLUTE MONOCYTE COUNT 0.5 /CUMM (0.10-0.60); BASOPHIL % 0 % (0.0-2.0); EOSINOPHIL % 1.4 % (0-5); HEMATOCRIT 27.2 % (37-47); MEAN CORPUSCULAR HGB 22.3 PG (27.0-31.0); MEAN CORPUSCULAR HGB CONC 30.6 G/DL (33.0-37.0); MEAN CORPUSCULAR VOLUME 72.7 FL (81.0-99.0); MEAN PLATELET VOLUME 8.3 FL (7.4-10.4); PLATELET COUNT 276 /CUMM (130-400); RBC DISTRIBUTION WIDTH 19.9 % (11.5-14.5); RED BLOOD CELL CT 3.74 /CUMM (4.20-5.40); WHITE BLOOD CELL COUNT 9.3 /CUMM (4.8-10.8)
--- NOTE | 2017-05-17 11:30 | RADIOLOGY REPORT ---
EXAMINATION: FLUOROSCOPY UPPER GI WITH GASTROGRAFIN WITH KUB CLINICAL INFORMATION: 3 days status post gastric patch repair of ulceration at the gastrojejunal anastomosis. Evaluate for persistent leak. Previous history of retrocolic gastric bypass surgery. COMPARISON: CT scan of the abdomen and pelvis dated 05/14/2017. TECHNIQUE: Preliminary swimming pool salesperson view of the abdomen was performed. A limited Gastrografin upper GI study was performed using 60 ml of Gastroview with the patient in the upright, semiupright and supine/oblique positions. Multiple spot films were acquired. FINDINGS: The preliminary swimming pool salesperson view of the abdomen demonstrates 2 drains in the left upper quadrant. Prominent free air is seen under the right hemidiaphragm. There are also some amorphous locules of air seen in the left upper quadrant, not definitely within bowel. In the left lung base, small pleural effusion and dense consolidation with air bronchograms are noted. Mild gaseous dilatation of the colon is noted. Esophageal distensibility and motility was not evaluated. The patient is status post gastric bypass procedure. The remnant gastric pouch is normal in size and appearance. From the region of the gastrojejunal anastomosis, extravasation of contrast into the left upper quadrant is seen. The jejunum is otherwise unremarkable. The excluded stomach is not imaged. FLUOROSCOPY TIME: 2.2 minutes. IMPRESSION: Persistent leak of contrast is seen from the proximal jejunum at or just beyond the anastomosis. This critical result was discussed with Kristen Jacobs 05/17/2017, 11:18 AM and it was ascertained that the content and urgency of this report was understood at the time of direct communication.
[2017-05-17 15:02] VITALS: BP 124/70
--- NOTE | 2017-05-17 16:03 | PN- Bariatrics ---
Surgical Brief Attending Note Brief Attending Note: pt has remained afebrile today with normal vital signs, no temp or tachycardia and no pain The ELIZABETH drains are serous. She had no change in exam or vitals since the UGI was completed The UGI indicates that there is no obstruction of contrast past the repaired area although there does appear to be some extravasation of contast to the left upper quadrant. Will allow a few ice chips every shift as she had been tolerating but need to give it more time Will consider upper endoscopy and stenting on
[2017-05-17 22:52] VITALS: BP 120/80
--- NOTE | 2017-05-17 23:15 | NUR ---
SHIFT NOTE- PT A/O X 3, ON RA. +FLATUS. HYPOACTIVE BS X 4. ABD SOFTLY DISTENDED. DENIES NAUSEA OR VOMITING. MEDICATED WITH PRN IV MORPHINE X 1 AT 2104. DRESSINGS TO ABD CD+I. 2 ELIZABETH DRAINS, #1 TO LEFT ABD- 10 CC STRAW COLORED FLUID, #2 TO RIGHT ABD 25 CC STRAW/ORANGE COLORED FLUID. INDEP. AMBULATING AROUND UNIT. SAFETY PRECAUTIONS MAINTAINED
[2017-05-18 06:44] VITALS: BP 130/78
[2017-05-18 08:55] LABS: ABSOLUTE BASOPHIL COUNT 0 /CUMM (0.0-0.2); ABSOLUTE EOSINOPHIL COUNT 0.2 /CUMM (0.0-0.7); ABSOLUTE GRANULOCYTE CT 5.5 /CUMM (1.4-6.5); ABSOLUTE LYMPH COUNT 0.8 /CUMM (1.2-3.4); ABSOLUTE MONOCYTE COUNT 0.5 /CUMM (0.10-0.60); BASOPHIL % 0.2 % (0.0-2.0); EOSINOPHIL % 2.7 % (0-5); GRANULOCYTE % 78.3 % (42.2-75.2); HEMATOCRIT 29.3 % (37-47); MEAN CORPUSCULAR HGB 22.4 PG (27.0-31.0); MEAN CORPUSCULAR HGB CONC 31.1 G/DL (33.0-37.0); MEAN CORPUSCULAR VOLUME 71.9 FL (81.0-99.0); MEAN PLATELET VOLUME 8.6 FL (7.4-10.4); PLATELET COUNT 313 /CUMM (130-400); RBC DISTRIBUTION WIDTH 19.5 % (11.5-14.5); RED BLOOD CELL CT 4.07 /CUMM (4.20-5.40); WHITE BLOOD CELL COUNT 7.1 /CUMM (4.8-10.8)
--- NOTE | 2017-05-18 10:38 | PN- General Surgery ---
See Addendum Subjective Subjective: Patient states she feels well. She offers no complaints. Her pain is well controlled and is ambulating in the halls frequently. She denies any nausea, vomiting, fever or chills. She reports passing flatus, however denies any bowel movements. Objective Vital Signs and I&Os Vital Signs Date Time Temp Pulse Resp B/P B/P Pulse O2 O2 Flow FiO2 Mean Ox Delivery Rate 05/18 0644 98.7 95 20 130/78 91 Room Air 05/17 2252 98.2 77 20 120/80 98 05/17 1502 98.7 94 20 124/70 93 Room Air Intake & Output 05/18 1600 05/18 0800 05/18 0000 05/17 1600 05/17 0800 05/17 0000 Intake Total 800 800 900 800 800 Output Total 535 35 600 525 920 Balance 265 765 300 275 -120 Intake, IV 800 800 700 800 800 Intake, Oral 0 200 0 0 Number 0 0 Bowel Movements Output, 35 35 25 20 Drainage Output, Urine 500 600 500 900 Patient 220 lb Weight Physical Exam: General: Patient resting comfortably in bed, awake and alert in no acute distress. Cardiac: S1S2 appreciated. RRR. Lungs: Good inspiratory efforts. CTA b/l. Abdomen: Soft and obese with 3 lap incisions healing well, one with steri strips in place c/d/i. remaining two with gauze and tegaderm in place which in c/d/i. [address] to bulb suction, Right ELIZABETH with serous drainge and mildly saturated surronding dressing which was changed at bedside. Left with serosanginous drainage. Bowel sounds hypoactive and appropriately tender to palpation. Ext: No edema or calf tenderness b/l. Current Medications: Current Medications Sig/Shelby Start time Last Medication Dose Route Stop Time Status Admin Acetaminophen 1,000 MG Q6P PRN 05/14 1700 AC IV Ampicillin Sodium/ 3,000 MG Q6H 05/14 1800 AC 05/18 Sulbactam Sodium IV 0626 Sodium Chloride 100 ML Anastrozole 1 MG DAILY 05/14 1715 AC 05/17 PO 1231 Dextrose/Sodium 1,000 ML .Q10H 05/14 1700 AC 05/18 Chloride IV 0400 Heparin Sodium 5,000 UNIT Q8 05/14 2200 AC 05/18 (Porcine) SC 0626 Morphine Sulfate 2 MG Q2P PRN 05/14 2215 AC 05/18 IV 0640 Morphine Sulfate 4 MG Q2 HRS NEEDED PRN 05/14 2200 AC 05/18 IV 0045 Ondansetron HCl 4 MG Q6P PRN 05/14 1700 AC IV Pantoprazole Sodium 40 MG DAILY 05/15 1000 AC 05/17 IV 1231 Patient Medication 1 ED .STK-MED ONE 05/17 1404 HI Teaching ED 05/17 1405 Promethazine HCl 12.5 MG Q6P PRN 05/14 1700 AC IV 05/21 1414 Results Last 48 Hours of Labs: Laboratory Tests 05/18 05/17 0751 0828 Chemistry Sodium (137 - 145 mmol/L) 139 140 Potassium (3.5 - 5.1 mmol/L) 3.6 3.5 Chloride (98 - 107 mmol/L) 106 108 H Carbon Dioxide (22 - 30 mmol/L) 22 23 Anion Gap (5 - 16) 11 8 BUN (7 - 17 mg/dL) 6 L 5 L Creatinine (0.5 - 1.0 mg/dL) 0.5 0.5 Estimated GFR (>60 ml/min) > 60 > 60 BUN/Creatinine Ratio (7 - 25 %) 12.0 10.0 Hematology CBC w Diff NO MAN DIFF REQ NO MAN DIFF REQ WBC (4.8 - 10.8 /CUMM) 7.1 9.3 RBC (4.20 - 5.40 /CUMM) 4.07 L 3.74 L Hgb (12.0 - 16.0 G/DL) 9.1 L 8.3 L Hct (37 - 47 %) 29.3 L 27.2 L MCV (81.0 - 99.0 FL) 71.9 L 72.7 L MCH (27.0 - 31.0 PG) 22.4 L 22.3 L RDW (11.5 - 14.5 %) 19.5 H 19.9 H Plt Count (130 - 400 /CUMM) 313 276 MPV (7.4 - 10.4 FL) 8.6 8.3 Gran % (42.2 - 75.2 %) 78.3 H 81.0 H Lymphocytes % (20.5 - 51.1 %) 11.5 L 11.8 L Monocytes % (1.7 - 9.3 %) 7.3 5.8 Eosinophils % (0 - 5 %) 2.7 1.4 Basophils % (0.0 - 2.0 %) 0.2 0 L Absolute Granulocytes (1.4 - 6.5 /CUMM) 5.5 7.5 H Absolute Lymphocytes (1.2 - 3.4 /CUMM) 0.8 L 1.1 L Absolute Monocytes (0.10 - 0.60 /CUMM) 0.5 0.5 Absolute Eosinophils (0.0 - 0.7 /CUMM) 0.2 0.1 Absolute Basophils (0.0 - 0.2 /CUMM) 0 0 PUBS MCHC (33.0 - 37.0 G/DL) 31.1 L 30.6 L Assessment/Plan Assessment/Plan This is a 42 year old female with a PSHx significant for retrocolic gastric bypass who is POD 4 s/p laparoscopic exploration and repair of perforated gastojejunal anastomotic ulcer with zoran patch. UGI revealed a persistent leak. Plan for endoscopy on with Dr. Murray for possible stent placement. Meanwhile, continue with npo status with ice chips and pertinent home meds. IV Unasyn was renewed. Continue with current pain regimen, GI and DVT ppx. Patient was encouraged to ambulate and use her insentive spirometry. Patient was discussed with Dr. Carrera who is in agreeemtn. Core Measures/Miscellaneous Venous Thromboembolism VTE Risk Factors: Age > 40, Surgery VTE Contraindications: No Contraindications VTE Diagnosis: No VTE Type: NONE VTE Confirmed by (Test): NONE Beta Cheryl Is Beta Cheryl a Home Med? No Antibiotics Is Patient on Antibiotics? Yes If Yes: infection
[2017-05-18 14:53] VITALS: BP 132/70
[2017-05-18 22:13] VITALS: BP 108/60
[2017-05-19 06:30] VITALS: BP 128/70
--- NOTE | 2017-05-19 07:40 | PN- General Surgery ---
Subjective Subjective: Patient was seen the morning of 05/19/17. The note and assessment is as follows: NAEO. doing well. Currently denies any pain, N or V. still passing flatis but no BM. Voiding and ambulating spontaneously. Tolerating ice chips. Objective Vital Signs and I&Os Intake & Output 05/26 1600 05/26 0800 05/26 0000 05/25 1600 05/25 0800 05/25 0000 Intake Total 1040 1280 Output Total 1000 Balance 40 1280 Intake, IV 800 800 Intake, Oral 240 480 Output, Urine 1000 Physical Exam: General: Patient resting comfortably in bed, awake and alert in no acute distress. Cardiac: RRR. Lungs: Good inspiratory efforts. CTA b/l. Abdomen: Soft and obese incisions c/d/i, [address] to bulb suction, Right ELIZABETH with serous straw colored drainge and mildly saturated surronding dressing which was changed at bedside. Left with serosanginous drainage. +BS in all quadrants and appropriately tender to palpation. Ext: No edema or calf tenderness b/l. Assessment/Plan Assessment/Plan This is a 42 year old female with a PSHx significant for retrocolic gastric bypass who is POD 4 s/p laparoscopic exploration and repair of perforated gastojejunal anastomotic ulcer with zoran patch. UGI revealed a persistent leak. Plan: - Edoscopy tomorrow with Dr. Murray for possible stent placement - NPO with ice chips - IV Unasyn - Continue with current pain regimen - GI and DVT ppx - Continue to ambulate - Will discuss with Attending Core Measures/Miscellaneous Venous Thromboembolism VTE Risk Factors: Age > 40, Surgery VTE Contraindications: No Contraindications VTE Diagnosis: No VTE Type: NONE VTE Confirmed by (Test): NONE Beta Cheryl Is Beta Cheryl a Home Med? No Antibiotics Is Patient on Antibiotics? Yes If Yes: infection
[2017-05-19 09:11] LABS: ABSOLUTE BASOPHIL COUNT 0 /CUMM (0.0-0.2); ABSOLUTE EOSINOPHIL COUNT 0.2 /CUMM (0.0-0.7); ABSOLUTE GRANULOCYTE CT 4.5 /CUMM (1.4-6.5); ABSOLUTE LYMPH COUNT 0.9 /CUMM (1.2-3.4); ABSOLUTE MONOCYTE COUNT 0.9 /CUMM (0.10-0.60); BASOPHIL % 0.4 % (0.0-2.0); EOSINOPHIL % 3.2 % (0-5); GRANULOCYTE % 68.6 % (42.2-75.2); HEMATOCRIT 26.4 % (37-47); MEAN CORPUSCULAR HGB 22.5 PG (27.0-31.0); MEAN CORPUSCULAR HGB CONC 31.5 G/DL (33.0-37.0); MEAN CORPUSCULAR VOLUME 71.4 FL (81.0-99.0); MEAN PLATELET VOLUME 8.3 FL (7.4-10.4); PLATELET COUNT 296 /CUMM (130-400); RBC DISTRIBUTION WIDTH 19.6 % (11.5-14.5); WHITE BLOOD CELL COUNT 6.6 /CUMM (4.8-10.8)
[2017-05-19 15:11] VITALS: BP 124/68
[2017-05-19 20:57] VITALS: BP 125/70
[2017-05-20 06:47] VITALS: BP 106/68
[2017-05-20 08:32] LABS: ABSOLUTE BASOPHIL COUNT 0.1 /CUMM (0.0-0.2); ABSOLUTE EOSINOPHIL COUNT 0.2 /CUMM (0.0-0.7); ABSOLUTE GRANULOCYTE CT 5.2 /CUMM (1.4-6.5); ABSOLUTE LYMPH COUNT 1.2 /CUMM (1.2-3.4); ABSOLUTE MONOCYTE COUNT 0.9 /CUMM (0.10-0.60); BASOPHIL % 0.7 % (0.0-2.0); EOSINOPHIL % 2.5 % (0-5); GRANULOCYTE % 69.7 % (42.2-75.2); MEAN CORPUSCULAR HGB 22.2 PG (27.0-31.0); MEAN CORPUSCULAR HGB CONC 31.1 G/DL (33.0-37.0); MEAN CORPUSCULAR VOLUME 71.5 FL (81.0-99.0); MEAN PLATELET VOLUME 8.1 FL (7.4-10.4); PLATELET COUNT 315 /CUMM (130-400); RBC DISTRIBUTION WIDTH 19.1 % (11.5-14.5); RED BLOOD CELL CT 3.78 /CUMM (4.20-5.40); WHITE BLOOD CELL COUNT 7.5 /CUMM (4.8-10.8)
[2017-05-20] MEDS ORDERED: ARIMIDEX1 M1 PO (11:41)
[2017-05-20 13:45] VITALS: BP 114/70
--- NOTE | 2017-05-20 16:19 | PN- General Surgery ---
Surgical Brief Attending Note Brief Attending Note: Patient seen and examined. S/P Laparoscopic repair of perforated Marginal ulcer with persistent leak seen on UGI. An EGD with stent was discussed with the patient in detail to allow for PO nutrition and speed up healing. Patient understands everything and wishes to proceed.
--- NOTE | 2017-05-20 16:29 | Operative Report ---
Operative/Inv Procedure Report Surgery Date: 05/20/17 Name of Procedure: EGD with stent placement, with flouro Pre-Operative Diagnosis: Perforated marginal ulcer, S/P Gastric Bypass Post-Operative Diagnosis: Same Estimated Blood Loss: less than 50ml Surgeon/Continuous Improvement Coach: ARIES ROSENTHAL DO Anesthesia: general endotracheal tube IV Fluids: 500 cc Implants: 150 mm x 23 mm Endomaxx stent Drains: None Specimens: None Complications: None Condition: Stable Operative Indication: This is a 42-year-old female that presented to the emergency room less than a week ago with a perforated marginal ulcer status post gastric bypass many years ago. Patient underwent a laparoscopic repair. On postop day #2 the patient underwent an upper GI series which showed a persistent leak. At that point to speed up the healing process and promote by mouth nutrition and endoscopy with stent placement was discussed with the patient in detail. All risks including but not limited to bleeding, perforation, stent migration, and possible need for another stent were discussed in detail. The patient understood everything and decided to proceed. Operative/Procedure Note Note: The patient was brought to the operating room and placed on operating table in supine position. Venodyne stockings were placed and adequate general tracheal anesthesia was obtained. An endoscope was then passed down the posterior pharynx into the esophagus under direct visualization. The esophagus appeared normal GE junction was reached and the gastric pouch was entered. Gastric pouch appeared normal. The endoscope was then passed to the gastrojejunostomy and just past the gastrojejunostomy was noted a large ulcer which was consistent with the area of perforation. The Jorge L limb was entered and appeared normal as well. At that point we marked the area of the perforation, area just distal to the perforation on the Jorge L limb, and the GE junction. A guidewire was then placed down into the Jorge L limb under fluoroscopic guidance and the endoscope was removed. At that point and EndoMaxx stent was placed over the guidewire into appropriate position as seen with fluoroscopy. Once it was in the appropriate position it was deployed. The stent appeared to be in good position. The device and the wire were then removed and an upper endoscopy was once again performed. The proximal end of the stent was seen and it appeared in good position. At that point contrast was injected through the endoscope down into the esophagus and no leak of contrast and adequate proximal seal were noted on fluoroscopy. The contrast was then suctioned out and the endoscope was removed under direct visualization. The patient tolerated the procedure well with no complications. She was successfully extubated and transferred to the recovery room in stable condition. Findings: Large ulcer, otherwise healthy mucosa, Endomaxx stent placed as above. CC: DANTE CAM,KARLA Brandon; PAOLA CAM,OSIEL Schneider
[2017-05-20] MEDS ORDERED: AUGMENTIN600 MG/5 M PO (17:06)
[2017-05-20] MEDS ORDERED: HYCET 7.5 MG-3473 ML PO (17:06)
[2017-05-20] MEDS ORDERED: PROTONIX40 M3 PO (17:06)
--- NOTE | 2017-05-20 17:09 | Patient Discharge Instructions ---
Discharge Instructions General Discharge Information You were seen/treated for: perforation of ulcer jejunal side of anastomosis Migrated esophageal stents (removed) You had these procedures: Surgery Date: 05/14/17 Name of Procedure: laparoscopic exploration and repair of perforated posterior gastrojejunal anastomotic ulcer with omental grahm plication 05/20/17 Name of Procedure: EGD with stent placement, with flouro Surgery Date: 05/23/17 Name of Procedure: EGD with stent removal x3, with fluoro Watch for these problems: fever>101.3, increased pain, redness/swelling/drainage Call Surgeon to remove: ELIZABETH drain No bath, but you may shower: Yes Other wound care: ELIZABETH drain care as directed. leave white steri strips in place. Diet Continue normal diet: No Recommended Diet: Bariatric, Clear Liquids, Full Liquids Activity Full Activity/No Limits: No Activity Self Limited: Yes Pounds, do NOT lift more than: 10 Other activity limits: no heavy lifting. no strenuous activity. Acute Coronary Syndrome Inclusion Criteria At DC or during hospital stay patient has or had the following: ACS DIAGNOSIS No Discharge Core Measures Meds if any: Prescribed or Continued at Discharge Meds if any: NOT Prescribed or Continued at Discharge Congestive Heart Failure Inclusion Criteria At DC or during hospital stay patient has or had the following: CHF DIAGNOSIS No Discharge Core Measures Meds if any: Prescribed or Continued at Discharge Meds if any: NOT Prescribed or Continued at Discharge Cerebrovascular accident Inclusion Criteria At DC or during hospital stay patient has or had the following: CVA/TIA Diagnosis No Discharge Core Measures Meds if any: Prescribed or Continued at Discharge Meds if any: NOT Prescribed or Continued at Discharge Venous thromboembolism Inclusion Criteria VTE Diagnosis No VTE Type NONE VTE Confirmed by (Test) NONE Discharge Core Measures - Per Current guidelines, there needs to be overlap - treatment for the first 5 days of Warfarin therapy. - If discharged on Warfarin prior to 5 days of - overlap therapy, the patient will need to be - assessed for post discharge needs including - *Post discharge parental anticoagulation - *Warfarin and/or parental anticoagulation education - *Follow up date to check INR post discharge At least 5 days overlap therapy as Inpatient No Meds if any: Prescribed or Continued at Discharge Note: Overlap Therapy is Warfarin and Anticoagulant Meds if any: NOT Prescribed or Continued at Discharge
--- NOTE | 2017-05-20 17:12 | Surgical Discharge Summary ---
Visit Information Visit Dates Admission Date: 05/14/17 Discharge Date: 05/25/17 History of Present Illness Chief Complaint: abdominal pain, free air Medical History Blood Transfusion Hx: No Neurological: NONE EENT: NONE Cardiovascular: NONE Respiratory: NONE Gastrointestinal: GERD Hepatic: NONE Renal: NONE Musculoskeletal: NONE Psychiatric: NONE Endocrine: NONE Blood Disorders: NONE Cancer(s): Uterine sarcoma WELDER APPRENTICE/Reproductive: NONE History of MRSA: No History of VRE: No History of CDIFF: No Isolation History: Standard Surgical History Pertinent Surgical History: Laparoscopic gastric bypass, Right breast excision secondary to breast abscess L ureterolysis TAHBSO Psychosocial History Where Do You Live? Home Who Do You Live With? Spouse Services at Home: None What is Your Primary Language? Urdu ETOH Use: occasional use (2 beers/glasses wine/weekend) Review of Systems: see h&p Hospital Course Course Attending Physician: KARLA HOWELL MD Primary Care Physician: OSIEL GUEVARA MD Hospital Course: Presented to the ED on 05/14/17 with abdominal pain and free air. Taken to the OR emergently by for laparoscopic exploration and repair of perforated posterior gastrojejunal anastomotic ulcer with omental grahm plication, with placement of ELIZABETH drains. Post-operatively, iv antibiotics were continued through the hospitalization, and transitioned to oral augmentin at the time of discharge to home for intra-abdominal infection related to the perforated ulcer. Protonix was continued through the hospitalization, and transitioned to twice daily oral PPI treatment at the time of discharge. An upper gi study done post-operatively revealed a suspected contained perforation. She remained npo until did an EGD with stent placement under flouro guidance. She was then started on clear liquids, and advanced as tolerated to fulls. An xray of the stent placement was checked on PPD#1 prior to her discharge, and found to be migrating. She subsequently underwent repeat EGD and removal of stents that had migrated on PPD#2, with significant improvement of her GERD symptoms that started after the stent placement. She is currently tolerating isopure and clears, and is eager to go home. Antibiotics have been stopped, as she has received a total of 10 days of iv unasyn. She will be discharged with the ELIZABETH drain to be removed at her follow up visit next week. She has prescriptions for twice daily PPI, carafate, and hycet elixir for pain control as needed. Complications: Migration of stent Allergies: Coded Allergies: iodine (Mild, RASH 08/11/16) Significant Procedures: 05/14/2017 laparoscopic Jerald patch repair of acute gastric perforation 05/20/2017 EGD with stent placement 05/23/17 EGD with stent removal x3, with fluoro Disposition Summary Disposition Principal Diagnosis: perforation of marginal ulcer (jejunal side of anastomosis) Migrated esophageal stents (removal of these on 05/23/17) Additional Diagnosis: same as above s/p Surgery Date: 05/14/17 Name of Procedure: laparoscopic exploration and repair of perforated posterior gastrojejunal anastomotic ulcer with omental grahm plication Surgery Date: 05/20/17 Name of Procedure: EGD with stent placement, with flouro 05/23/17 Name of Procedure: EGD with stent removal x3, with fluoro Discharge Disposition: home or self care Discharge Instructions General Discharge Information Code Status: Full Code Patient's Diet: continue clears. isopure as tolerated. protein shakes as tolerated. Patient's Activity: no heavy lifting >10 lbs. no strenuous activity. Follow-Up Instructions/Appts: ELIZABETH drain care continue twice daily PPI and carafate for the next 4-6 weeks call to schedule follow up appointment with / one week Medications at Discharge Discharge Medications: Stop taking the following medications: Omeprazole (Prilosec) 20 MG CAPSULE.DR WHITE as needed for GERD Continue taking these medications: Anastrozole (Arimidex) 1 MG TABLET 1 Tablet ORAL DAILY Start taking the following new medications: Pantoprazole Sodium (Protonix) 40 MG TABLET. 1 Tablet ORAL TWICE DAILY Qty = 60 Refills = 1 Hydrocodone/Acetaminophen (Hycet 7.5 MG-325 MG/15 Ml Soln) 7.5 MG-325 MG/15 ML SOLUTION 15 Milliliters ORAL EVERY 4-6 HOURS NEEDED as needed for pain control Qty = 200 No Refills Sucralfate (Carafate) 1 GRAM/10 ML ORAL.SUSP 10 Milliliters ORAL 4 TIMES A DAY Qty = 1200 No Refills Instructions: 1 hour before food and bedtime Copies To: ROJAS ROSENTHAL DO, MD,OSIEL Schneider
[2017-05-20 18:12] VITALS: BP 114/6
[2017-05-20 22:36] VITALS: BP 130/60
[2017-05-21 06:30] VITALS: BP 102/68; BP 108/70
--- NOTE | 2017-05-21 08:24 | PN- Student ---
MARGARET GAO 05/21/17 0800: Subjective Subjective: POST-OP PROGRESS NOTE Pt is a 42 year old female with a history of retrocolic gastric bypass who presented with a perforated gastrojejunal anastomotic ulcer repaired with a zoran patch on 05/14. EGD showed an posterior UGI leak post operatively, which was repaired by a stent placement on 05/20. Pt is now POD #1 of stent placement who is doing well with no complaints. She denies any N/V. Her pain is well controlled and denies any abdominal pain. She is tolerating a clear liquid diet this am. + Ambulation. + BM. ROS Neuro: Has complaints of minor headaches related to allergies that has been relieved by benadryll. Respiratory: Denies any SOB. Cardiac: Denies any chest pain or palpitations. GI: Denies any constipation, bloating, or pain. States some discomfort in suprapelvic region but does not describe it as pain. Musculoskeletal: States that her previous back pain has now resolved and does not have any complaints of pain. : No changes in frequency/urgency, denies burning. Objective Objective: General: Alert & Oriented x3. Appropriate mood & affect. Respiratory: CABL, no wheezes, rhales, or ronchi. Cardiac: S1S2, no murmurs, rubs or gallops. No edema. GI: Abdomen is nondistended, nontender. +BS. Bandages from procedure are c/d/i. R ELIZABETH drain bandage is moderately saturated with sanguinous fluid, minimal output in ELIZABETH drain. L ELIZABETH drain bandage is c/d/i, with minimal sanguinous fluid output. Assessment/Plan Assessment: This is a 42 year old female with a PSHx significant for retrocolic gastric bypass and perforated gastrojejunal anastomotic ulcer who is POD #1 of EGD & stent placement who is doing well with no complaints. Plan: - Continue progressing diet as tolerated to fulls. - F/u with XRay results of stent placement. - Heparin SC for DVT prophylaxis. - Pain management as needed. - Promote use of incentive spirometer. - Discuss possible d/c today or tomorrow. - Will discuss with Dr. Carrera. WALKER FRAUSTO 05/21/17 1110: Subjective Subjective: Agree with above Objective Objective: Agree with above Assessment/Plan Plan: Agree with above. X-ray was complete. Unfortunately shows migration of the stent. I discussed with Dr. Foss and patient will need to undergo replacement of the stent intraoperatively later today. She will meet made nothing by mouth and IV fluids will be restarted for now. I have discussed this with her and she understands the need for the procedure.
--- NOTE | 2017-05-21 13:42 | RADIOLOGY REPORT ---
EXAMINATION: XR ABDOMEN CLINICAL INDICATION: Check position of stent. Postprocedure imaging and stent placement. COMPARISON: Gastrografin GI dated 05/17/2017. TECHNIQUE: AP view of the abdomen performed on 2 images. FINDINGS: A stent is seen projected in the left mid abdomen paralleling the lumbar spine with tip extending from the L1-L5 vertebral bodies, presumably located within the anastomosed jejunal limb. Some contrast is seen opacifying various portions of the colon from prior Gastrografin GI study. Left upper quadrant drain is in place. IMPRESSION: Stent is seen projected in the left mid abdomen, presumably within the anastomosed jejunal limb.
--- NOTE | 2017-05-21 13:46 | RADIOLOGY REPORT ---
EXAMINATION:\H\ \N\XR CHEST CLINICAL INFORMATION: Check position of stent. Post procedure EGD and stent placement. COMPARISON: Chest x-ray dated 12/01/2010. TECHNIQUE: AP view of the chest was obtained. FINDINGS: The cardiomediastinal silhouette is within normal limits in size. Low lung volumes are seen with dense parenchymal opacities in both lung bases, appearing platelike in the right lung base and more diffuse in the left lung base. Findings are likely related to bibasilar atelectasis and consolidation. There is suspicion of associated left-sided small pleural effusion. In the left upper quadrant, a drain is seen under the left hemidiaphragm. Upper abdominal structures are poorly assessed on this film. The known free air is poorly appreciated. Left upper quadrant stent is partially imaged, not adequately assessed. IMPRESSION: Bibasilar opacities, most likely related to atelectasis or consolidation. Associated small left pleural effusion is suspected.
--- NOTE | 2017-05-21 13:50 | RADIOLOGY REPORT ---
EXAMINATION:\H\ \N\XR CHEST/INTRAOPERATIVE FLUOROSCOPY CLINICAL INFORMATION: Stent placement in patient with gastric leak status post gastric bypass surgery. COMPARISON: GI study dated 05/17/2017. TECHNIQUE/FINDINGS: Fluoroscopic equipment was dedicated to the operating room for the placement of a stent. Single fluoroscopic spot film was obtained and is archived in PACS. This demonstrates a gastric scope in the left upper quadrant. A left upper quadrant stent and drain are also partially imaged. FLUOROSCOPY TIME: 2 minutes and 8 seconds. IMPRESSION: Administrative dictation for intraoperative fluoroscopy for GI stent placement.
[2017-05-21 14:50] VITALS: BP 120/60
--- NOTE | 2017-05-21 17:54 | PN- General Surgery ---
Surgical Brief Attending Note Brief Attending Note: Patient with no complaints. AXR today revealed that the stent has migrated. D/W patient need to return to the OR for EGD with stent reposition and to telscope another stent to anchor to esophagus better. Patient understands everything and wishes to proceed.
--- NOTE | 2017-05-21 18:07 | Operative Report ---
Operative/Inv Procedure Report Surgery Date: 05/21/17 Name of Procedure: EGD with stent reposition and new stent placement x2 Pre-Operative Diagnosis: Stent migration s/p stent placement for perforated GJ ulcer Post-Operative Diagnosis: Same Estimated Blood Loss: scant Surgeon/Dietary Manager: ARIES ROSENTHAL DO Anesthesia: general endotracheal tube IV Fluids: 800 cc Implants: Endomaxx stent x 2 implanted today, 120 x 23 and 100 x 23 Drains: None Specimens: None Complications: None Condition: Stable Operative Indication: This is a 42 female whose postoperative day #1 status post EGD with stent placement for persistent leak after a perforated gastrojejunal ulcer. On today' s x-ray it was noted of the stent has migrated into the small bowel. I discussed with the patient the need for a repeat upper endoscopy with stent retrieval and reposition. I also explained to the patient that we may add stents proximally to improve the anchor of the stent to the esophagus. All risks including but not limited to bleeding, perforation, reflux, dysphagia, and possibility of the same stent migration after this procedure were discussed in detail. The patient understood everything and decided to proceed. Operative/Procedure Note Note: The patient was brought to the operating room and placed on operating table in supine position. Venodyne stockings were placed and adequate general tracheal anesthesia was obtained. The endoscope was inserted through the mouth down into the posterior pharynx and into the esophagus under direct visualization. It was passed down into the gastric pouch and once again the area of perforation was visualized. Then the endoscope was then passed down into the Jorge L limb to about 90 cm where the migrated stent was identified. Using an endoscopic grasper the stent was grabbed and retrieved back into appropriate position. Following this an EndoMaxx stent 120 mm x 23 mm was telescoped and deployed above the prior stent with approximately 3 cm of overlap. Following this another stent 100 mm x 23 mm was telescoped proximally to that with approximately 3 cm of overlap. All this was performed under fluoroscopic guidance to assure appropriate placement. The top of the most proximal stent was about 5 cm from the upper esophageal sphincter. Contrast was then injected and was seen going all the way through all the stents and into the Jorge L limb without leak. The air was then suctioned out and the endoscope was removed under direct visualization. The patient was successfully extubated and transferred to the recovery room in stable condition. The patient tolerated the procedure well with no complications. Findings: Stent migrated to ~90 cm from mouth, retrieved and repositioned appropriately, telescoped 2 more stents to improve anchor in esophagus ~5 cm from UES
[2017-05-21 20:08] VITALS: BP 136/102
--- NOTE | 2017-05-21 23:03 | PN- General Surgery ---
Subjective Subjective: Postop check Pt is now s/p repeat EGD with placement of additional stent due migration of stent placed on 05/20/17. Pt tolerated the procedure well and returned to the [facility] floor in stable condition. At this time, pt complains of significant substernal discomfort and heartburn, with occassional belching. She reports some relief with morphine, but just not sustained. She expresses some anxiety about the discomfort and is unable to get comfortable enough to fall asleep. She has otherwise voided without difficulty and passing flatus. Denies radiation of pain to L or R chest. No shortness of breath or dizziness. Objective Vital Signs and I&Os Vital Signs Date Time Temp Pulse Resp B/P B/P Pulse O2 O2 Flow FiO2 Mean Ox Delivery Rate 05/21 2008 99.0 82 20 136/102 95 Nasal Cannula 05/21 1450 99.0 80 20 120/60 93 05/21 0630 99.0 71 20 102/68 93 Room Air Intake & Output 05/21 1600 05/21 0800 05/21 0000 05/20 1600 05/20 0800 05/20 0000 Intake Total 1280 1000 460 800 800 400 Output Total 515 710 662 556 635 10 Balance 765 290 -202 244 165 390 Intake, IV 800 1000 400 800 800 400 Intake, Oral 480 60 Number 1 1 Bowel Movements Output, 15 10 12 6 35 10 Drainage Output, Urine 500 700 650 550 600 Physical Exam: Gen: Pt is awake and alert. Appears uncomfortable. Cardiac: regular Pulmonary: CTA bilaterally Abdomen: Soft, nondistended. ELIZABETH drains remain in place with scant serous output. No significant tenderness. Normoactive BS are heard. Assessment/Plan Assessment/Plan Pt is a 42 yo F with a hx of gastric bypass, who is POD # 7 s/p laparoscopic zoran patch repair of gastric perforation, complicated by persistent leak. She underwent stent placement on 05/20, which migrated and was repositioned, with additional stent added for better coverage of defect. Substernal discomfort is expected. Plan: -NPO with IVF for now. -Continue morphine for pain control. -Protonix BID for GI ppx. Will give one dose of Pepcid now for heartburn. -Add ativan IV q8prn anxiety or insomnia if morphine does not help. -Ambulate as desired. -SC heparin and alps for DVT ppx. -F/u chest and abdominal x-rays in AM to evaluate stent placement. If negative for migration, will start full liquids. -Leave ELIZABETH drains in place, likely beyond discharge. -Continue IV antibiotics with Unasyn. Augmentin upon discharge. Core Measures/Miscellaneous Venous Thromboembolism VTE Risk Factors: Age > 40, Surgery VTE Contraindications: No Contraindications VTE Diagnosis: No VTE Type: NONE VTE Confirmed by (Test): NONE Beta Cheryl Is Beta Cheryl a Home Med? No Antibiotics Is Patient on Antibiotics? Yes If Yes: infection
[2017-05-22 01:09] VITALS: BP 130/66
--- NOTE | 2017-05-22 07:14 | RADIOLOGY REPORT ---
EXAMINATION: INTRAOPERATIVE FLUOROSCOPIC GUIDANCE AND CHEST CLINICAL INFORMATION: Gastric stent adjustment. COMPARISON: Multiple prior exams are reviewed. The most recent is from the same day. TECHNIQUE: Fluoroscopic time was utilized in the OR for Dr. Murray. Fluoroscopic images were obtained in the AP projection. FINDINGS: Fluoroscopic guidance was provided in the OR to Dr. Murray. Numerous AP fluoroscopic photo spot images were obtained during placement of a distal esophageal/gastric stent. Alignment is adequate on the final images provided. FLUOROSCOPY TIME: 7 minutes, 7 seconds of fluoroscopic time was utilized for the entirety of this examination. IMPRESSION: Fluoroscopic guidance was provided in the OR to Dr. Murray. Numerous AP fluoroscopic photo spot images were obtained during placement of a distal esophageal/gastric stent. Alignment is adequate on the final images provided.
[2017-05-22 07:19] VITALS: BP 130/80
[2017-05-22 08:12] LABS: ABSOLUTE BASOPHIL COUNT 0 /CUMM (0.0-0.2); ABSOLUTE EOSINOPHIL COUNT 0 /CUMM (0.0-0.7); ABSOLUTE GRANULOCYTE CT 6.2 /CUMM (1.4-6.5); ABSOLUTE LYMPH COUNT 1.7 /CUMM (1.2-3.4); BASOPHIL % 0.5 % (0.0-2.0); EOSINOPHIL % 0.3 % (0-5); GRANULOCYTE % 69.2 % (42.2-75.2); HEMATOCRIT 27.2 % (37-47); MEAN CORPUSCULAR HGB CONC 30.8 G/DL (33.0-37.0); MEAN CORPUSCULAR VOLUME 71.4 FL (81.0-99.0); MEAN PLATELET VOLUME 8.4 FL (7.4-10.4); PLATELET COUNT 411 /CUMM (130-400); RBC DISTRIBUTION WIDTH 19.3 % (11.5-14.5); RED BLOOD CELL CT 3.81 /CUMM (4.20-5.40)
--- NOTE | 2017-05-22 10:29 | PN- General Surgery ---
RAUL ZEPEDA,REYNA 05/22/17 1027: Subjective Subjective: Heartburn is "killing me" but better than last night, improved when sitting up. had bm last night, + flatus, pain controlled except for heartburn. Objective Vital Signs and I&Os Vital Signs Date Time Temp Pulse Resp B/P B/P Pulse O2 O2 Flow FiO2 Mean Ox Delivery Rate 05/22 07 98.9 69 20 130/80 92 Nasal Cannula 05/22 0109 99.0 74 18 130/66 93 Nasal 2.0L Cannula 05/22 0000 93 Nasal 2.0L Cannula 05/21 2008 99.0 82 20 136/102 95 Nasal Cannula 05/21 1450 99.0 80 20 120/60 93 Intake & Output 05/22 1600 05/22 0800 05/22 0000 05/21 1600 05/21 0800 05/21 0000 Intake Total 944 455 4422 1000 460 Output Total 20 515 710 662 Balance 780 300 765 290 -202 Intake, IV 800 717 610 9334 400 Intake, Oral 480 60 Number 1 1 Bowel Movements Output, 20 15 10 12 Drainage Output, Urine 500 700 650 Physical Exam: Gen: Pt is awake and alert. Appears uncomfortable. sitting upright. Cardiac: regular Pulmonary: no resp distress. CTA bilaterally Abdomen: Soft, nondistended, tender in the epigastrum. ELIZABETH drains remain in place with scant serous output. site c/d/i, no infection. Normoactive BS are heard. L side ELIZABETH drain removed without difficluty. dsd applied. Results Last 48 Hours of Labs: Laboratory Tests 05/22 05/21 0715 1035 Chemistry Sodium (137 - 145 mmol/L) 140 139 Potassium (3.5 - 5.1 mmol/L) 4.3 4.3 Chloride (98 - 107 mmol/L) 104 104 Carbon Dioxide (22 - 30 mmol/L) 26 26 Anion Gap (5 - 16) 11 9 BUN (7 - 17 mg/dL) 2 L < 2 L Creatinine (0.5 - 1.0 mg/dL) 0.6 0.5 Estimated GFR (>60 ml/min) > 60 > 60 BUN/Creatinine Ratio (7 - 25 %) 3.3 L 4.0 L Magnesium (1.6 - 2.3 mg/dL) 1.9 Hematology CBC w Diff NO MAN DIFF REQ WBC (4.8 - 10.8 /CUMM) 9.0 RBC (4.20 - 5.40 /CUMM) 3.81 L Hgb (12.0 - 16.0 G/DL) 8.4 L Hct (37 - 47 %) 27.2 L MCV (81.0 - 99.0 FL) 71.4 L MCH (27.0 - 31.0 PG) 22.0 L RDW (11.5 - 14.5 %) 19.3 H Plt Count (130 - 400 /CUMM) 411 H MPV (7.4 - 10.4 FL) 8.4 Gran % (42.2 - 75.2 %) 69.2 Lymphocytes % (20.5 - 51.1 %) 19.1 L Monocytes % (1.7 - 9.3 %) 10.9 H Eosinophils % (0 - 5 %) 0.3 Basophils % (0.0 - 2.0 %) 0.5 Absolute Granulocytes (1.4 - 6.5 /CUMM) 6.2 Absolute Lymphocytes (1.2 - 3.4 /CUMM) 1.7 Absolute Monocytes (0.10 - 0.60 /CUMM) 1.0 H Absolute Eosinophils (0.0 - 0.7 /CUMM) 0 Absolute Basophils (0.0 - 0.2 /CUMM) 0 PUBS MCHC (33.0 - 37.0 G/DL) 30.8 L Recent Imaging Studies: PATIENT: MARIA VICTORIA OBREGON PRESENT AGE: 42 PATIENT ACCOUNT NO: [id number] : 75 LOCATION: [facility] ORDERING PHYSICIAN: WALKER HILL PA-C SERVICE DATE: 05/22/17 EXAM TYPE: RAD - [id number] VIEW; XRY-CHEST XRAY, ONE VIEW ONLY EXAMINATION:\\H\\ \\N\\XR CHEST XR ABDOMEN CLINICAL INFORMATION: A 42-year-old female status post stent placement. For follow up. COMPARISON: Fluoroscopic images done on 05/21/2017 at the time of the stent placement. Radiographs of the abdomen done on 05/21/2017. TECHNIQUE: Frontal view of the chest and frontal view of the abdomen and pelvis, total of 3 images. FINDINGS: There is a radiopaque overlapping metallic stent identified extending from the level just below the sternoclavicular junction to the level of L1 vertebral body, appears to be projecting on this frontal projection along the expected location of the esophagus, stomach or across the gastrojejunal anastomosis (since patient has history of gastric bypass surgery). Previously located metallic stent seen within the left mid abdomen is no longer visualized. There are drainage tubes identified at left upper quadrant of the abdomen with evidence of bilateral small (left greater than right) pleural effusions and nonspecific bibasilar airspace disease. The heart size is within normal limits. IMPRESSION: Radiopaque overlapping metallic stent is visualized within the chest, and abdomen, as described above. DICTATED BY: SHENA BROWN MD DATE/TIME DICTATED:05/22/17 / 1041 YOUTH ADVOCATE:MICHAEL Assessment/Plan Assessment/Plan Pt is a 42 yo F with a hx of gastric bypass, who is POD # 8 s/p laparoscopic zoran patch repair of gastric perforation, complicated by persistent leak. She underwent stent placement on 05/20, which migrated and was repositioned, with additional stent added for better coverage of defect. Plan: -Start clears, warm liquids only. -switch to po pain meds. -valium qhs prn spasm -Protonix BID for GI ppx. pepcid prn. -Ambulate as desired. -SC heparin and alps for DVT ppx. -F/u chest and abdominal x-rays in AM to evaluate stent placement. -Leave R side ELIZABETH drain in place, L side drain removed today -Continue IV antibiotics with Unasyn. Augmentin upon discharge. Core Measures/Miscellaneous Venous Thromboembolism VTE Risk Factors: Age > 40, Surgery VTE Contraindications: No Contraindications VTE Diagnosis: No VTE Type: NONE VTE Confirmed by (Test): NONE Beta Cheryl Is Beta Cheryl a Home Med? No Antibiotics Is Patient on Antibiotics? Yes If Yes: infection ARIES ROSENTHAL DO 05/22/17 1118: Attending MD Review Statement Attending Statement Attending MD Statement: examined this patient, discuss w/resident/PA/TUBER MACHINE CUTTER, agreed w/resident/PA/TUBER MACHINE CUTTER, discussed with family, reviewed images Attending Assessment/Plan: Patient seen and examined, agree with above. Doign well, some substernal spasm and reflux. AVSS UO ok JPs serosanguinous. Abd-soft. Labs ok. F-ltsh-oljha in appropriate position. Will give liquids today (should stick to warm liquids only to promote stent expansion), OOB, PO meds, May need Valium at night, X-ray in AM.
--- NOTE | 2017-05-22 11:01 | RADIOLOGY REPORT ---
EXAMINATION:\H\ \N\XR CHEST XR ABDOMEN CLINICAL INFORMATION: A 42-year-old female status post stent placement. For follow up. COMPARISON: Fluoroscopic images done on 05/21/2017 at the time of the stent placement. Radiographs of the abdomen done on 05/21/2017. TECHNIQUE: Frontal view of the chest and frontal view of the abdomen and pelvis, total of 3 images. FINDINGS: There is a radiopaque overlapping metallic stent identified extending from the level just below the sternoclavicular junction to the level of L1 vertebral body, appears to be projecting on this frontal projection along the expected location of the esophagus, stomach or across the gastrojejunal anastomosis (since patient has history of gastric bypass surgery). Previously located metallic stent seen within the left mid abdomen is no longer visualized. There are drainage tubes identified at left upper quadrant of the abdomen with evidence of bilateral small (left greater than right) pleural effusions and nonspecific bibasilar airspace disease. The heart size is within normal limits. IMPRESSION: Radiopaque overlapping metallic stent is visualized within the chest, and abdomen, as described above.
[2017-05-22] MEDS ORDERED: VALIUM5 M2 PO (11:41)
[2017-05-22 14:47] VITALS: BP 110/68
--- NOTE | 2017-05-22 15:50 | NUR ---
PT NOTED TO BE FLUSHED, REDNESS TO FACE DOWN TO NECK. PT DENIES ANY SOB OR TIGHTNESS. VITAL SIGNS STABLE. IV BENADRYL GIVEN. SURGICAL PA ANEL MARY.
[2017-05-22 22:46] VITALS: BP 118/74
[2017-05-23 06:28] VITALS: BP 120/70
--- NOTE | 2017-05-23 10:23 | PN- General Surgery ---
See Addendum Subjective Subjective: Reports heartburn ongoing, but slightly better than yesterday. Tolerating strictly hot liquids currently (coffee, tea, broth). Ambulating without difficulty. No dizziness. No shortness of breath. No chest pains. Concerned about going home. Objective Vital Signs and I&Os Vital Signs Date Time Temp Pulse Resp B/P B/P Pulse O2 O2 Flow FiO2 Mean Ox Delivery Rate 05/23 0628 98.7 70 18 120/70 97 Room Air 05/22 2246 99.4 69 18 118/74 94 Room Air 05/22 1447 99.0 71 18 110/68 93 Room Air Intake & Output 05/23 1600 05/23 0800 05/23 0000 05/22 1600 05/22 0800 05/22 0000 Intake Total 860 1630 1060 800 300 Output Total 5 20 Balance 860 1630 1055 780 300 Intake, IV 800 930 700 800 300 Intake, Oral 60 700 360 Number 1 Bowel Movements Output, 5 20 Drainage Physical Exam: General - alert & oriented. uncomfortable. no acute distress. Lungs - clear bilaterally. no w/r/r. Cardiac - s1s2. reg. Abdomen - soft. ELIZABETH drain with serous drainage. expected zora-incisional tenderness. Extremities - warm bilaterally. no c/c/e. calves soft and nontender b/l. Current Medications: Current Medications Sig/Shelby Start time Last Medication Dose Route Stop Time Status Admin Acetaminophen 1,000 MG Q6P PRN 05/14 1700 AC IV Acetaminophen/ 15 ML Q4P PRN 05/22 1215 AC Hydrocodone Bitart PO Acetaminophen/ 30 ML Q4 HRS NEEDED PRN 05/22 1215 AC Hydrocodone Bitart PO Ampicillin Sodium/ 3,000 MG Q6H 05/14 1800 AC 05/23 Sulbactam Sodium IV 0528 Sodium Chloride 100 ML Anastrozole 1 MG DAILY 05/14 1715 AC 05/23 PO 0929 Diazepam 5 MG QPM PRN 05/22 1145 AC PO Diphenhydramine HCl 50 MG .STK-MED ONE 05/22 1547 DC IM 05/22 1548 Diphenhydramine HCl 50 MG Q4-6 PRN PRN 05/20 2200 AC 05/22 IV 1548 Famotidine 20 MG BID PRN 05/22 1145 AC 05/23 IV 0531 Heparin Sodium 5,000 UNIT Q8 05/14 220 AC 05/23 (Porcine) SC 0535 Hyoscyamine 0.125 MG Q4 HRS NEEDED PRN 05/20 1700 AC PO Lorazepam 1 MG Q8P PRN 05/21 2300 DC 05/22 IV 0019 Morphine Sulfate 4 MG Q4 HRS NEEDED PRN 05/22 1145 AC 05/23 IV 0649 Morphine Sulfate 4 MG Q2 HRS NEEDED PRN 05/21 2215 DC 05/22 IV 0954 Morphine Sulfate 2 MG Q2P PRN 05/21 2215 DC 05/22 IV 0632 Ondansetron HCl 4 MG Q6P PRN 05/14 1700 AC 05/22 IV 0443 Oxycodone/ 1 TAB Q4P PRN 05/22 1130 DC Acetaminophen PO Oxycodone/ 2 TAB Q4P PRN 05/22 1130 DC Acetaminophen PO Pantoprazole Sodium 40 MG BID 05/20 2200 AC 05/23 IV 0929 Potassium Chloride 20 MEQ Q10H 05/21 1045 AC 05/23 Dextrose/Sodium 1,000 ML IV 0208 Chloride Results Last 48 Hours of Labs: Laboratory Tests 05/22 05/21 0715 1035 Chemistry Sodium (137 - 145 mmol/L) 140 139 Potassium (3.5 - 5.1 mmol/L) 4.3 4.3 Chloride (98 - 107 mmol/L) 104 104 Carbon Dioxide (22 - 30 mmol/L) 26 26 Anion Gap (5 - 16) 11 9 BUN (7 - 17 mg/dL) 2 L < 2 L Creatinine (0.5 - 1.0 mg/dL) 0.6 0.5 Estimated GFR (>60 ml/min) > 60 > 60 BUN/Creatinine Ratio (7 - 25 %) 3.3 L 4.0 L Magnesium (1.6 - 2.3 mg/dL) 1.9 Hematology CBC w Diff NO MAN DIFF REQ WBC (4.8 - 10.8 /CUMM) 9.0 RBC (4.20 - 5.40 /CUMM) 3.81 L Hgb (12.0 - 16.0 G/DL) 8.4 L Hct (37 - 47 %) 27.2 L MCV (81.0 - 99.0 FL) 71.4 L MCH (27.0 - 31.0 PG) 22.0 L RDW (11.5 - 14.5 %) 19.3 H Plt Count (130 - 400 /CUMM) 411 H MPV (7.4 - 10.4 FL) 8.4 Gran % (42.2 - 75.2 %) 69.2 Lymphocytes % (20.5 - 51.1 %) 19.1 L Monocytes % (1.7 - 9.3 %) 10.9 H Eosinophils % (0 - 5 %) 0.3 Basophils % (0.0 - 2.0 %) 0.5 Absolute Granulocytes (1.4 - 6.5 /CUMM) 6.2 Absolute Lymphocytes (1.2 - 3.4 /CUMM) 1.7 Absolute Monocytes (0.10 - 0.60 /CUMM) 1.0 H Absolute Eosinophils (0.0 - 0.7 /CUMM) 0 Absolute Basophils (0.0 - 0.2 /CUMM) 0 PUBS MCHC (33.0 - 37.0 G/DL) 30.8 L Assessment/Plan Assessment/Plan This 42 year old female with a hx of gastric bypass is POD # 9 s/p laparoscopic zoran patch repair of gastric perforation, complicated by persistent leak s/p stent placement on 05/20, which migrated and was repositioned, with additional stent added for better coverage of defect tolerating warm/hot liquids protonix bid and pepcid prn - gi ppx oob/ambulating without difficulty will f/u xray to r/o stent migration hep sv - dvt ppx R sided ELIZABETH drain remains in place iv unasyn for perforated ulcer / intra-abdominal infection will f/u Core Measures/Miscellaneous Venous Thromboembolism VTE Risk Factors: Age > 40, Surgery VTE Contraindications: No Contraindications VTE Diagnosis: No VTE Type: NONE VTE Confirmed by (Test): NONE Beta Cheryl Is Beta Cheryl a Home Med? No Antibiotics Is Patient on Antibiotics? Yes If Yes: infection
--- NOTE | 2017-05-23 12:01 | RADIOLOGY REPORT ---
EXAMINATION: CHEST X-RAY AND KUB CLINICAL INFORMATION: Stent migration COMPARISON: Previous exams, most recent from yesterday TECHNIQUE: AP view of the chest and supine AP view of the abdomen and pelvis FINDINGS: There is slight distal migration of the stent. The proximal end of the stent is at the T8 vertebral body level. The distal end of the stent is just at the level of the left iliac crest at the L4-L5 disc space level. Previously, the stent was identified just below the sternoclavicular junction, probably the T5 vertebral body to the L1 vertebral body. The cardiac and mediastinal contours are stable. There is atelectasis at the lung bases. The lungs are otherwise clear. There may be a small left pleural effusion. There is no pneumothorax. There is a single left upper quadrant drainage catheter under the left hemidiaphragm. The second left upper quadrant drain appears to have been removed compared to yesterday's exam. There is oral contrast in colon. There is no evidence of free air. Visualized bony structures are unremarkable. IMPRESSION: Distal migration of the stent as described above
[2017-05-23 14:05] VITALS: BP 100/60
--- NOTE | 2017-05-23 19:33 | Operative Report ---
Operative/Inv Procedure Report Surgery Date: 05/23/17 Name of Procedure: EGD with stent removal x3, with fluoro Pre-Operative Diagnosis: Migrated esophageal stents, s/p placement 2 days ago Post-Operative Diagnosis: Same Estimated Blood Loss: less than 50ml Surgeon/Access Nurse: ARIES ROSENTHAL DO Anesthesia: general endotracheal tube IV Fluids: 500 cc Drains: None Specimens: Endomaxx stent x 3 Complications: None Condition: Stable Operative Indication: This is a 42-year-old female who is day #2 status post stent retrieval and deployment of 2 additional stents for better purchase on the esophagus. Patient underwent a screening x-ray today to evaluate the position of the stents and there was noted that the stents have significantly migrated with the proximal end being just above the GE junction. Given significant immediate migration of the stents despite excellent purchase up into the esophagus, decision was made to perform an upper endoscopy and stent removal. All risks including but not limited to bleeding, infection, perforation, and need for further endoscopic procedures were discussed in detail. The patient understood everything and decided to proceed. Operative/Procedure Note Note: The patient was brought to the operating room and placed on the operating room table in supine position. Venodyne stockings were placed and adequate general endotracheal anesthesia was obtained. A fluoroscopy was performed and showed proximal end of the stents just above the GE junction. At that point the endoscope was introduced through the mouth down into the posterior pharynx and into the esophagus. The most proximal stent was noted just proximal to the GE junction. Using an endoscopic grasper the proximal stent was grabbed and cinched and removed under direct visualization using fluoroscopy. With bringing up the most proximal stents the 2 distal stents came up into the esophagus with it. The proximal stent was removed. The same was performed for the other 2 stents. All stents were removed under direct visualization using fluoroscopy. Minimal bleeding was noted. Contrast study was then performed no esophageal abnormalities were noted. Anatomy appeared intact. Questionable small leak was still noted at the gastrojejunostomy. The endoscope was then removed under direct visualization suctioning on the way out. The patient was successfully extubated and transferred to the recovery room in stable condition. The patient tolerated the procedure well with no complications. Findings: Significantly migrated stents with proximal end just proximal to GE jxn (~20 cm migration from placement)
[2017-05-23 20:40] VITALS: BP 108/80
--- NOTE | 2017-05-23 21:05 | NUR ---
RECEIVED PT FROM PACU AT 2029. A/O X3. VSS STABLE AT RA. PT DENIES PAIN AT THIS TIME. DENIES NAUSEA OR HEARTBURN. DRSGS TO UPPER ABD QUADS CDI. ELIZABETH DRAIN PATENT W/MINIMAL OUTPUT. NO ACUTE DISTRESS. WILL MONITOR.
--- NOTE | 2017-05-23 21:43 | RADIOLOGY REPORT ---
EXAMINATION: C-arm imaging in the OR of the abdomen CLINICAL INDICATION: Esophageal stent removal. History of prior gastric bypass surgery. COMPARISON: Abdomen 05/23/2017. Gastrografin GI series 05/17/2017 TECHNIQUE: C-arm imaging in operating room. Number of images. 2. FINDINGS: 2 spot images were obtained over the gastroesophageal junction with oral contrast in the esophagus flowing into the stomach. The previously seen esophageal stent has been removed. There is no large extraluminal collection of contrast. Contrast appears contained in the gastric pouch and distal esophagus. Surgical drain seen over the left upper quadrant. IMPRESSION: Status post removal of esophageal stent. No large extraluminal collection of contrast.
[2017-05-23 23:01] VITALS: BP 110/72
--- NOTE | 2017-05-24 | NUR ---
PT NOTED TO HAVE PHLEBITIS AT IV SITE IMMEDIATELY AFTER RECEIVING FROM PACU AT 2030. NURSING ATTEMPTED TO PLACE AN IV MULTIPLE TIMES BUT UNSUCCESSFUL. NURSING SIPHON OPERATOR UPDATED. SPECIAL POLICE OFFICER CALLED TO HELP PLACE AN IV USING ULTRASOUND MACHINE WHO REMAINED UNSUCCESSFUL. RN ANESTHESIOLOGIST CALLED WHO WERE ABLE TO PLACE AN IV LINE AFTER A FEW ATTEMPTS.
[2017-05-24 07:07] VITALS: BP 108/70
--- NOTE | 2017-05-24 07:27 | PN- Student ---
MARGARET GAO 05/24/17 0657: Subjective Subjective: Pt is a 42 year old female with a history of gastric bypass is post op day #10 of a laparoscopic zoran patch repair of gastric perforation, complicated by persistent leak & stent placement on 05/20, which migrated & was repositioned, where an additional stent was added for better coverage of defect on 05/21, and both since removed after further migration on 05/23. She denies any change of pain from previous day, and states that her heartburn has resolved after removal of the stents. She denies any chest pain. She denies any N/V or dizziness. + ambulation. Remains NPO. ROS General: denies any headaches. Respiratory: denies any SOB. Cardiac: denies any chest pain, states heartburn has resolved. GI: denies any abdominal pain or cramping. MSK: denies any joint pain, has minor pain on extremities from peripheral IV access. Objective Objective: Vitals Temperature: 98.9 degrees F BP: 108/70 mmHg HR:72 BPM RR:16 respirations/min Oxygen saturation: 92% on room air General: Alert & oriented x3. Appropriate mood & affect. Respiratory: CABL, no wheezes, rhales, or ronchi. Cardiac: S1S2, normal rate, regulat rhythm, no murmurs, rubs, or gallops. No edema present. GI: Abdomen is soft, nondistended, nontender, + BS, dressings are c/d/i. Right ELIZABETH drain site is nonerythematous, dressing is moderately saturated with serous fluid, and scant fluid accumulated inside the drain. MSK: extremities are warm bilaterally, no calf tenderness elicited. Minor ecchymosis noted on left arm from peripheral IV access. Assessment/Plan Assessment: This 42 year old female with PSHx significant of gastric bypass is POD # 10 of laparoscopic zoran patch repair of gastric perforation, complicated by persistent leak & stent placement on 05/20, reposition & additional stent placement on 05/21, and complete stent removal on 05/23 who is doing well with no significant pain. - F/u w/ imaging regarding stent removal and perforation. - Possible PICC line placement later today for TPN administration. - Advance diet as tolerated pending results. - Heparin SC DVT prophylaxis. - Promote ambulation. - Promote use of incentive spirometer. - Will discuss w/ Dr. Carrera. BISHNU HALL,DECLAN 05/24/17 0816: Resident Review Statement Other Findings: Agree w above student note. POD1 sp EGD/stent removal x3. No heartburn, no n/v , +flatus/bm, some abd discomfort helped w meds. many questions re: plan of care, aware attending will discuss with her later today. ABD: soft, minimally ttp throughout, dressings removed- incisions CDI, ELIZABETH with < 10cc serous output. Continue NPO vs. advance diet, per attending. ?PICC & TPN if not ready for PO. ?DC ELIZABETH- minimal serous output fu labs will dw attending
[2017-05-24 14:23] VITALS: BP 122/80
[2017-05-24] MEDS ORDERED: CARAFATE1 GM/10 M1 PO (16:50)
[2017-05-24 21:55] VITALS: BP 124/76
[2017-05-25 06:00] VITALS: BP 122/70
--- NOTE | 2017-05-25 07:17 | PN- General Surgery ---
Surgical Brief Attending Note Brief Attending Note: Patient looks well the [facility] she is afebrile and has a normal white blood cell count she's tolerating liquids plus I superior protein drinks. Although her albumin is 3 and her per the albumin is 10 we will try to increase his protein orally as opposed to placing a PICC line and TPN. The ELIZABETH drain is completely serous without any sediment .in it. Her to be discharged home on liquids and protein orally and to follow up in the office as an outpatient. I believe can stop her IV antibiotics at this time. She should remain on PPIs. Myself or Dr. Foss will see her in follow-up in 1 week
--- NOTE | 2017-05-25 12:04 | NUR ---
NURSING NOTE: PATIENT LEFT FLOOR AMBULATING ON OWN TO PHARMACY AND FRONT LOBBY FOR DISCHARGE HOME SELF CARE. PATIENT A/OX3, STEADY GAIT. PAIN CONTROLLED AT THIS TIME. IV DISCONTINUED. ALL MEDICATIONS READY TO BE PICKED UP IN PHARMACY FOR PATIENT. ALL BELONGINGS PACKED AND TAKEN WITH PATIENT AND FRIEND. DISCHARGE INFORMATION DISCUSSED WITH PATIENT. PATIENT UNDERSTANDS, NO NEW QUESTIONS AT THIS TIME.
== END 2017-05-25 12:08 | DRG 330 ==
LOC: ERH 04:46 → PACUH 13:36 → 2NA 13:36 → EDBEDREQ 15:46 → ENRESERV 16:07 → ENTRNSPT 16:21 → 2NA 16:49 → CMPTRNSPT 17:44 → ENTRNSPT 05-20 17:38 → EDTRNSPTSTS 05-20 17:53 → CMPTRNSPT 05-20 18:11 → ENTRNSPT 05-21 18:57 → EDTRNSPT 05-21 21:20 → EDTRNSPTSTS 05-21 21:20 → CMPTRNSPT 05-21 22:18 → ENTRNSPT 05-23 20:20 → CMPTRNSPT 05-23 20:46 → ENPENDDIS 05-25 09:25 → 2NA 05-25 12:08
PROVIDERS: Emergency Medicine; Nurse Practitioner; Physician Assistant; Physician Assistant Surgical; ADMIT Surgery
PROC: 0DUA47Z Supplement Jejunum with Autologous Tissue Substitute, Percutaneous Endoscopic Approach (ICD-10-PCS; principal; 2017-05-14)
PROC: 0D758DZ Dilation of Esophagus with Intraluminal Device, Via Natural or Artificial Opening Endoscopic (ICD-10-PCS; 2017-05-20)
PROC: 0DP08DZ Removal of Intraluminal Device from Upper Intestinal Tract, Via Natural or Artificial Opening Endoscopic (ICD-10-PCS; 2017-05-21)
PROC: 0D718DZ Dilation of Upper Esophagus with Intraluminal Device, Via Natural or Artificial Opening Endoscopic (ICD-10-PCS; 2017-05-21)
PROC: 0DP58DZ Removal of Intraluminal Device from Esophagus, Via Natural or Artificial Opening Endoscopic (ICD-10-PCS; 2017-05-23)
DX: K28.5 Chronic or unspecified gastrojejunal ulcer with perforation (principal); T85.528A Displacement of other gastrointestinal prosthetic devices, implants and grafts, initial encounter; E66.9 Obesity, unspecified; K21.9 Gastro-esophageal reflux disease without esophagitis; Z68.34 Body mass index [BMI] 34.0-34.9, adult; Z85.42 Personal history of malignant neoplasm of other parts of uterus; Y73.3 Surgical instruments, materials and gastroenterology and urology devices (including sutures) associated with adverse incidents
CPT/HCPCS: 2NAP; 36415; 74000; 74177; 74241; 81001; 82436; 93005; 93010; 96361; 96365; 96375; 96376; C1874; C9399; J0131; J1100; J1170; J1200; J1644; J1720; J2250; J2270; J2405; J2550; J3010; J7042